=== PATIENT | female | born 1955 | race Caucasian/White ===

== ENCOUNTER 2016-12-03 15:28 | Emergency (ER) | payer OTHER ==
[~2016-12-03] VITALS: Ht 162.6 cm; Wt 108.0 kg
--- NOTE | ~2016-12-03 | EKG ---
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: Desiree BLANCA : 1955 Requested By: Maksim Lopez Order Number: [id number] MD: Porter Bowie Measurements Intervals [place] Rate: 107 P: 38 OR: 171 QRS: 9 QRSD: 77 T: 43 QT: 322 QTc: 430 Interpretive Statements Sinus tachycardia Otherwise no significant abnormality No previous ECG available for comparison Electronically Signed On 12-04-2016 8:34:30 CDT by Porter Bowie [email or web address] <ELECTRONICALLY SIGNED> By: Porter Bowie MD, [facility] 12/04/16 0834 1626 1626 Porter Bowie MD, FACC /EPI
[~2016-12-03 15:28] MED LIST: ACETAMINOPHEN325 M1 PO; ADVAIR 100-501 EACH; ADVAIR 250-501 EACH INH; CEFTIN500 MG PO; COLACE 100 MG100 MG PO; EPIPEN 2-P0.3 MG/0.3 IM; FLUCONAZOLE 10100 MG PO; GLIPIZIDE XL2.5 MG PO; GLUCOPHAGE XR500 MG PO; HYDROCODONE-AP1 EAC6 PO; IBUPROFEN 600600 M1 PO; LEVEMIR SUBQ; LUNESTA3 MG PO; MOBIC15 MG; MULTI VITAMIN1 EACH PO; NORCO 5-325 TA1 EACH PO; NOVOLOG100 UNIT/1; PERCOCET 5-3251 EACH PO; PHENTERMINE H37.5 MG; PREDNISONE 10 M10 M1 PO; PROMETHAZINE12.5 M1 PO; SINGULAIR 10 MG10 M1; SINGULAIR 10 MG10 M1 PO; TRAZODONE 150150 M1; TRAZODONE 150150 M1 PO; Trazodone PO; VITAMIN D1000 UNI1 PO; VITAMINC500 PO; XARELTO10 M1
[2016-12-03 16:45] LABS: PROTIME 10.7 Seconds (9.3-11.4)
[2016-12-03 16:46] LABS: CALCIUM 7.9 mg/dL (8.5-10.1); CREATININE 0.9 mg/dL (0.6-1.0); POTASSIUM 4.1 mmol/L (3.5-5.1)
[2016-12-03 16:51] LABS: ALBUMIN 3.1 g/dL (3.4-5.0); TOTAL BILIRUBIN 0.5 mg/dL (<0.1-1.0); TOTAL PROTEIN 6.8 g/dL (6.4-8.2)
[2016-12-03 17:13] LABS: HEMATOCRIT 42.2 % (37.0-47.0); HEMOGLOBIN 14.3 gm/dL (12.0-15.0); MANUAL DIFF YES; RBC 5.12 mil/uL (4.20-5.00); WBC 5.7 thou/uL (4.0-11.0)
[2016-12-03 17:14] LABS: ABSOLUTE NEUTROPHILS 3.9 thou/uL (1.4-8.2); MCH 27.9 pg (26.0-34.0); MCHC 33.9 % (28.0-37.0); MCV 82.4 fL (80.0-100.0); PLATELET COUNT 203 thou/uL (150-400); RDW 15.8 % (10.5-14.5)
[2016-12-03] MEDS ORDERED: ROBITUSSIN100 MG/53 PO (18:13)
[2016-12-03] MEDS ORDERED: PREDNISONE 20 M20 MG PO (18:14)
[2016-12-03] MEDS ORDERED: ZPAK PO (18:14)
== END 2016-12-03 18:33 | disposition home or self-care (01) ==
LOC: ER 15:28
PROVIDERS: Physician Assistant
DX: J18.8 Other pneumonia, unspecified organism (principal); Z90.710 Acquired absence of both cervix and uterus; J45.909 Unspecified asthma, uncomplicated; Z98.890 Other specified postprocedural states; Z88.1 Allergy status to other antibiotic agents; Z88.2 Allergy status to sulfonamides; Z88.8 Allergy status to other drugs, medicaments and biological substances

== ENCOUNTER 2017-05-04 20:58 | Emergency (ER) | payer OTHER ==
[~2017-05-04] VITALS: Ht 162.6 cm; Wt 104.3 kg
--- NOTE | ~2017-05-04 | EKG ---
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: AHSAN : 1955 Requested By: Juan Wilkins Order Number: [id number] MD: Porter Bowie Measurements Intervals [employer] Rate: 72 P: 33 MD: 184 QRS: 4 QRSD: 94 T: 25 QT: 390 QTc: 427 Interpretive Statements Sinus rhythm Low voltage, precordial leads Left ventricular hypertrophy Baseline wander in lead(s) V5 Compared to ECG 12/03/2016 16:26:11 No significant change was found Electronically Signed On 05-06-2017 13:32:43 CDT by Porter Bowie [email or web address] <ELECTRONICALLY SIGNED> By: Porter Bowie MD, [facility] 05/06/17 1332 12 12 Porter Bowie MD, [facility] /EPI
[~2017-05-04 20:58] MED LIST changes: +PREDNISONE 20 M20 MG PO; +ROBITUSSIN100 MG/53 PO; +VENTOLIN HFA 1818 GM INH; +ZPAK PO
[2017-05-04 22:57] LABS: BASOPHILS 0.7 % (0.0-2.0); EOSINOPHILS 4.2 % (0.0-3.0); HEMATOCRIT 40.5 % (37.0-47.0); HEMOGLOBIN 13.8 gm/dL (12.0-15.0); LYMPHOCYTES 20.7 % (24.0-44.0); MCH 28.2 pg (26.0-34.0); MCHC 33.9 g/dL (28.0-37.0); MCV 83.1 fL (80.0-100.0); PLATELET COUNT 345 thou/uL (150-400); POLYS 66.4 % (36.0-66.0); RBC 4.87 mil/uL (4.20-5.00); RDW 14.8 % (10.5-14.5); WBC 7.6 thou/uL (4.0-11.0)
[2017-05-04 23:04] LABS: ANION GAP 7 mmol/L (7-16); BUN 14 mg/dL (7-18); CHLORIDE 102 mmol/L (98-107); CO2 28 mmol/L (21-32); CREATININE 0.7 mg/dL (0.6-1.0); GLUCOSE 82 mg/dL (74-106); MANUAL DIFF NO; POTASSIUM 4.8 mmol/L (3.5-5.1); SODIUM 137 mmol/L (136-145)
[2017-05-04 23:12] LABS: ALBUMIN 3.6 g/dL (3.4-5.0); ALKALINE PHOSPHATASE 103 U/L (46-116); APTT 23.5 Seconds (24.5-32.8); PROTIME 9.5 Seconds (9.3-11.4); SGOT 33 U/L (15-37); SGPT 31 U/L (30-65); TOTAL BILIRUBIN 0.4 mg/dL (<0.1-1.0); TOTAL PROTEIN 6.7 g/dL (6.4-8.2); TROPONIN-I < 0.04 ng/mL (<0.04-0.07)
== END 2017-05-05 00:33 | disposition home or self-care (01) ==
LOC: ER 20:58
PROVIDERS: Emergency Medicine
DX: J45.901 Unspecified asthma with (acute) exacerbation (principal); D83.9 Common variable immunodeficiency, unspecified; J32.9 Chronic sinusitis, unspecified; Z86.711 Personal history of pulmonary embolism; Z90.710 Acquired absence of both cervix and uterus; Z90.721 Acquired absence of ovaries, unilateral; Z86.018 Personal history of other benign neoplasm; Z88.1 Allergy status to other antibiotic agents; Z88.2 Allergy status to sulfonamides

== ENCOUNTER 2020-09-09 09:20 | Inpatient (IN) | payer OTHER ==
[~2020-09-09] VITALS: Ht 162.6 cm; Wt 144.2 kg
--- NOTE | ~2020-09-09 | EMS ---
[address] [address] EMS Patient Care Report Name: MARLENA GAMINO Room #: [facility] [id number] Admission: 09/09/20 Attend Phys: Discharge: Date of : 53 Report #: [id number] THIS REPORT FOR: //name// Report Transmitted: 09/09/2020 09:33 EMS Care Summary [facility] Incident [id number] @ 09/09/2020 08:30 Incident Location [address] [place] [address]/TO [place] [id number] Patient MARLENA GAMINO Female, 65 Years 1955 Patient Address [address] [place], [place] [id number] Patient History Asthma,Diabetes, Patient Allergies Avelox,Sulfa, Patient Medications Zithromax, Metformin, Atrovent, Glipizide, Ventolin, Cipro, Symbicort, Augmentin, Bentyl, Cephalexin, Dexamethasone, Flagyl, Omeprazole, Chief Complaint Shortness of breath Disposition Transported No Lights/[place] Reason Breathing Problem Transported To [facility] Narrative Dispatched to shortness of breath and pt is COVID positive. Upon arrival pt found sitting upright in bed in minor distress. Pt states she was feeling [address] [address] EMS Patient Care Report Name: MARLENA GAMINO Room #: REG ER Rachel#: [id number] Admission: 09/09/20 Attend Phys: Discharge: Date of : 53 Report #: [id number] slightly short of breath last Sunday and went and got a COVID test and was positive. Pt states last night anytime she got up or exerted herself she became very short of breath and would have long coughing fit. Pt states it would take approx 5 minutes to catch her breath. Pt states when she is coughing she becomes weak but regains strength after. Pt denies chest pain. ALS assessment. youth nutritional monitor, 12-lead, IV, and O2 applied. Pt transported to Ed for further evaluation and treatment by MD. Initial Vitals @09:09P: 84,R: 33,CO: 1,SpO2: 94, @08:55P: 91,R: 22,BP: 101/75,SpO2: 91, @08:59P: 85,R: 30,GCS: 15,SpO2: 93, @08:41P: 88,R: 22,BP: 123/61,GCS: 15,CO: 1,SpO2: 89,Revised Trauma: 12, @08:52P: 86,R: 15,SpO2: 93, @08:52P: 89,R: 36,CO: 0,SpO2: 94, @09:11P: 87,R: 29,BP: 108/64,GCS: 15,SpO2: 95,Revised Trauma: 12, Assessments @08:40MENTAL:Person Oriented,Time Oriented,Place Oriented,Event Oriented,SKIN:HEENT:LUNG SOUNDS:ABDOMEN:PELVIS//GI:EXTREMITIES:Left Arm: No Abnormalities,Right Arm: No Abnormalities,Left Leg: No Abnormalities,Right Leg: No Abnormalities,PULSE:Radial: 2+ Normal,NEURO:@08:54MENTAL:Time Oriented,Person Oriented,Event Oriented,Place Oriented,SKIN:HEENT:LUNG SOUNDS:General: No Abnormalities,Left Upper: No Abnormalities,Right Upper: No Abnormalities,Left Lower: No Abnormalities,Right Lower: No Abnormalities,ABDOMEN:General: No Abnormalities,Left Upper: No Abnormalities,Right Upper: No Abnormalities,Left Lower: No Abnormalities,Right Lower: No Abnormalities,PELVIS//GI:EXTREMITIES:Left Arm: No Abnormalities,Right Arm: No Abnormalities,Left Leg: No Abnormalities,Right Leg: No Abnormalities,PULSE:NEURO: Impression Acute Respiratory Distress (Dyspnea) Procedures @08:40ALS AssessmentResponse: UnchangedSucceeded@08:56Normal Saline (.9% NaCl) 10cc (20 ga) Site: Hand-LeftResponse: UnchangedSucceeded@08:42Oxygen FlowRate: 4 Device: Nasal Cannula (NC) Response: ImprovedSucceeded@08:5912-Lead ECGResponse: UnchangedSucceeded Timeline 08:27,Call Received 08:27,Psap Call 08:30,Dispatched 08:31,En Route 08:37,On Scene [address] [address] EMS Patient Care Report Name: MARLENA GAMINO Room #: REG [facility] Ramos#: [id number] Admission: 09/09/20 Attend Phys: Discharge: Date of : 53 Report #: [id number] 08:39,At Patient 08:40,ALS Assessment,Response: UnchangedSucceeded, 08:41,BP: 123/61 M,PULSE: 88,RR: 22 R,SPO2: 89 Ox,ETCO2: ,BG: ,PAIN: ,GCS: 15, 08:42,Oxygen FlowRate: 4 Device: Nasal Cannula (NC) Response: ImprovedSucceeded, 08:49,Depart Scene 08:52,BP: / M,PULSE: 89,RR: 36 R,SPO2: 94 Ox,ETCO2: ,BG: ,PAIN: ,GCS: , 08:52,BP: / M,PULSE: 86,RR: 15 R,SPO2: 93 Ox,ETCO2: ,BG: ,PAIN: ,GCS: , 08:55,BP: 101/75 M,PULSE: 91,RR: 22 R,SPO2: 91 Ox,ETCO2: ,BG: ,PAIN: ,GCS: , 08:56,Normal Saline (.9% NaCl) 10cc 20 ga Site: Hand-Left,Response: UnchangedSucceeded, 08:59,12-Lead ECG,Response: UnchangedSucceeded, 08:59,BP: / M,PULSE: 85,RR: 30 R,SPO2: 93 Ox,ETCO2: ,BG: ,PAIN: ,GCS: 15, 09:09,BP: / M,PULSE: 84,RR: 33 R,SPO2: 94 Ox,ETCO2: ,BG: ,PAIN: ,GCS: , 09:11,BP: 108/64 M,PULSE: 87,RR: 29 R,SPO2: 95 Ox,ETCO2: ,BG: ,PAIN: ,GCS: 15, 09:15,At Destination 09:45,Call Closed Disclaimer v1.1 Copyright 2020 [employer] This EMS Care Summary contains data elements from the applicable legal record (which may be displayed differently). It is designed to provide pertinent information for the following purposes: continuity of care, clinical quality, and state data reporting. The complete legal record is available to ED staff and administrators of the receiving hospital in [employer] Patient Tracker. All data is provided "as is."
[2020-09-09 09:21] VITALS: BP 151/86
[2020-09-09] MEDS ORDERED: METFORMIN HCL500 M3 PO (09:24)
[2020-09-09] MEDS ORDERED: NASACORT10.8 ML NASAL (09:42)
[2020-09-09] MEDS ORDERED: CO-ENZYME Q-1010 MG PO (09:42)
[2020-09-09] MEDS ORDERED: IPRATROPIUM BRO15 ML NASAL (09:43)
[2020-09-09] MEDS ORDERED: GLIPIZIDE 10 MG10 MG PO (09:44)
[2020-09-09] MEDS ORDERED: FISH OIL 1,0001 EAC9 PO (09:44)
[2020-09-09] MEDS ORDERED: SLEEP AID50 MG PO (09:45)
[2020-09-09] MEDS ORDERED: VITAMIN D3125 MCG/1 PO (09:45)
[2020-09-09] MEDS ORDERED: AZITHROMYCIN500 MG PO (09:46)
[2020-09-09] MEDS ORDERED: METFORMIN HCL500 MG PO (09:46)
[2020-09-09] MEDS ORDERED: FOSAMAX 70 MG T70 MG PO (09:47)
[2020-09-09 09:48] LABS: ABSOLUTE NEUTROPHILS 6.6 thou/uL (1.4-8.2); HEMATOCRIT 40.4 % (37.0-47.0); HEMOGLOBIN 13.3 gm/dL (12.0-15.0); MCH 27.5 pg (26.0-34.0); MCHC 32.9 g/dL (28.0-37.0); MCV 83.7 fL (80.0-100.0); MONOCYTES 3.2 % (1.0-8.0); PLATELET COUNT 315 thou/uL (150-400); POLYS 90.8 % (36.0-66.0); RBC 4.83 mil/uL (4.20-5.00); RDW 15.1 % (10.5-14.5); WBC 7.3 thou/uL (4.0-11.0)
[2020-09-09] MEDS ORDERED: PEPCID20 MG PO (09:48)
[2020-09-09] MEDS ORDERED: BREO ELLIPTA 11 EACH INH (09:48)
[2020-09-09 10:10] LABS: ANION GAP 15 mmol/L (7-16); BUN 23 mg/dL (7-18); CALCIUM 8.4 mg/dL (8.5-10.1); CHLORIDE 101 mmol/L (98-107); CO2 21 mmol/L (21-32); GLUCOSE 452 mg/dL (74-106); POTASSIUM 4.3 mmol/L (3.5-5.1); SODIUM 137 mmol/L (136-145)
[2020-09-09 10:22] LABS: ALBUMIN 2.8 g/dL (3.4-5.0); SGOT 24 U/L (15-37); SGPT 27 U/L (30-65); TOTAL BILIRUBIN 0.5 mg/dL (0.2-1.0); TOTAL PROTEIN 6.4 g/dL (6.4-8.2); TROPONIN-I <0.06 ng/mL (<0.06)
--- NOTE | 2020-09-09 10:41 | EKG ---
[place] [address] [place] [address] ELECTROCARDIOGRAM REPORT Name: MARLENA GAMINO [facility] [id number] Admission: 09/09/20 Attend Phys: Discharge: Date of : 53 Report #: [id number] [facility] ED Test Date: 2020-09-09 Test Time: 09:33:34 Pat Name: MARLENA GAMINO Department: Room: Gender: F Customer Success Intern: esnafisa : 1955 Requested By: Thaddeus Dsouza Order Number: [id number] MD: Harish Rosario Measurements Intervals [place] Rate: 82 P: 5 [place]: 165 QRS: 3 QRSD: 92 T: 4 QT: 403 QTc: 471 Interpretive Statements Sinus rhythm Low voltage, precordial leads Left ventricular hypertrophy Borderline T abnormalities, anterior leads Baseline wander in lead(s) V6 Compared to ECG 05/04/2017 21:13:28 T-wave abnormality now present Electronically Signed On 09-09-2020 10:41:10 SUSTAINABILITY EXECUTIVE DIRECTOR by Harish Rosario [email or web address] <ELECTRONICALLY SIGNED> By: Harish Rosario MD, [facility] 09/09/20 1041 2 2 Harish Rosario MD, [facility] /EPI
[2020-09-09 11:09] VITALS: BP 151/86
[2020-09-09 11:43] VITALS: BP 134/61
[2020-09-09 12:45] VITALS: BP 150/70
[2020-09-09 15:37] VITALS: BP 146/85
--- NOTE | 2020-09-09 16:40 | NUR ---
A RIGHT UPPER ARM MIDLINE WAS PLACED PER HOSPITAL POLICY FOR ADDITIONAL IV ACCESS. LINE WAS TRIMMED TO 19CM AND ADVANCED WITHOUT DIFFICULTY. LINE SECURED AND RELEASED FOR USE
[2020-09-09 20:12] VITALS: BP 120/57
[2020-09-10 01:14] VITALS: BP 119/63; BP 120/53; BP 131/51
[2020-09-10 02:06] LABS: GLYCOHEMOGLOBIN (HGB A1C) 7.7 % (4.8-5.6)
[2020-09-10 04:57] VITALS: BP 112/46
--- NOTE | 2020-09-10 06:23 | NUR ---
assumed pt care at the change of shift, pt is awake, alert and oriented, sr on the monitor, vss, meds given as per oct, convalescent plasma given, vss, pumped up to 10L NC, 02sat in the low 90s, will passn report
[2020-09-10 07:49] LABS: HEMATOCRIT 40.6 % (37.0-47.0); HEMOGLOBIN 12.9 gm/dL (12.0-15.0); MCH 27.1 pg (26.0-34.0); MCHC 31.8 g/dL (28.0-37.0); MCV 85.4 fL (80.0-100.0); RBC 4.75 mil/uL (4.20-5.00); RDW 15.4 % (10.5-14.5)
[2020-09-10 08:00] VITALS: BP 139/61
[2020-09-10 08:09] LABS: ALBUMIN 2.7 g/dL (3.4-5.0); CALCIUM 8.4 mg/dL (8.5-10.1); CREATININE 0.9 mg/dL (0.6-1.0); DIRECT BILIRUBIN 0.1 mg/dL (<0.1-0.2); MAGNESIUM 2.6 mg/dL (1.8-2.4); POTASSIUM 3.9 mmol/L (3.5-5.1); TOTAL BILIRUBIN 0.4 mg/dL (0.2-1.0); TOTAL PROTEIN 6.2 g/dL (6.4-8.2)
--- NOTE | 2020-09-10 11:23 | NUR ---
PT SEEN TODAY BY , WHEN RN WENT INTO THE ROOM, PT WAS WIDE EYED, APPEARED UNEASY, ASKED PT WHAT WAS GOING ON, PT STATED THAT SHE HAD NOT SLEPT ALL NIGHT AND WAS STARTING TO FEEL FUNNY. RN COMMUNICATED WITH THE PT'S DAUGHTER WHO IS AN LIFE UNDERWRITER THAT USED TO WORK AT THIS HOSPITAL, PER THE DAUGHTER PT HAS TAKEN 300MG OF TRAOZODONE FOR THE PAST 25 YEARS AND NOT GETTING ENOUGH SLEEP WOULD HAVE MORE THAN ENOUGH CAUSED THE ANXIETY FOR THE PT. WHEN TRYING TO GET THE PT UP TO THE BEDSIDE COMMODE, PT EXCLAIMED I CAN'T DO IT SEVERAL TIMES BEFORE EVEN SETTING THE FOOT ON THE GROUND. PT WAS ABLE TO BE CONSOLED THROUGH THERAPEUTIC COMMUNICATION, WAS ABLE TO GO USE THE BSC AND URINATED DARK YELLOW URINE. PT'S APPETITE IS LOW, AND HAS BEEN NEEDING INCREASING OXYGENATION NEEDS. PT CAME TO SEE THE PT RN SPOKE ABOUT THIS MORNING'S MOBILITY INCIDENCE AND REPORTED TO TAKE PRECAUTIONS R/T ANXIETY. PT STATED UNDERSTANDING. CONTINUING TO MONITOR
[2020-09-10 11:30] VITALS: BP 147/82
--- NOTE | 2020-09-10 13:46 | NUR ---
Spoke with patient via phone. Patient admits with COVID pnemonia. Patient in Enhanced isolation for COVID. Patient with hx of asthma. She has CPAP and nebulizer at home. Independent with adls and self care. 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 She does not need documentation to return to work. 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 She lives with spouse and son. [facility]. She has 2 dtrs one lives out of town. She is rec Inermectin and Remdessivir as part of her treatment plan. She does not have oxygen at home. She currently on 10 liters. Therapy evals in process. Reviewed role of casemgt. Her PCP is Dr Earl. Joyce for dc planning.
--- NOTE | 2020-09-10 15:15 | HC ---
[facility] [place] [address] CONSULTATION Name: MARLENA GAMINO Room #: 364-P ADM IN M.R.#: [id number] Admission: 09/09/20 Attend Phys: Ray Monet MD Discharge: Date of : 53 Report #: [id number] THIS REPORT FOR: cc: Bela Wetzel MD [facility] - Family physician unknown Juan Olivera MD ~ DATE OF SERVICE: 09/09/2020 INFECTIOUS DISEASE CONSULTATION REASON FOR CONSULTATION: I was asked to evaluate concerning COVID-19 pneumonia. HISTORY OF PRESENT ILLNESS: The patient is a 65-year-old underlying history of common variable immunodeficiency, diabetes and asthma. On 09/04/2020, she was diagnosed with COVID-19 after she presented with low-grade fever, nonproductive cough, shortness of breath, myalgias, arthralgias and weakness. Over the subsequent 4 days, she began to get acutely short of breath; therefore brought in to the Emergency Room where she was noted to have an O2 saturation of 87% on room air. She typically uses an inhaler for her asthma. She has previously been on immunoglobulin injections up to the last 10 years and then discontinued because she continued to have sinus infections. With this illness, she has had nasal congestion and some diarrhea. REVIEW OF SYSTEMS: A 14-point review of system was negative other than what has been described above. She does take azithromycin every other day as a preventative for her chronic upper respiratory tract infections. Her exposure was to her son who also had COVID-19 at the same time. ALLERGIES: DOXYCYCLINE, SULFA, MOXIFLOXACIN AND CLARITHROMYCIN. MEDICATIONS: As noted on her MAR, which were reviewed. PAST MEDICAL HISTORY: Asthma, diabetes, obesity, common variable immunodeficiency, cataract replacement, pulmonary embolus, chronic sinusitis and bronchitis, several sinus surgeries, asthma, hysterectomy, left hand cyst excised. FAMILY HISTORY: No report of tuberculosis. SOCIAL HISTORY: Nonsmoker, no significant alcohol intake. PHYSICAL EXAMINATION: VITAL SIGNS: She was afebrile and hemodynamically stable. GENERAL: She is alert and cooperative and pleasant, on oxygen per nasal cannula. [facility] [address] [place] [address] CONSULTATION Name: MARLENA GAMINO Room #: 364-P ADM IN M.R.#: [id number] Admission: 09/09/20 Attend Phys: Ray Monet MD Discharge: Date of : 53 Report #: [id number] SKIN: Without rash or decubitus. No palpable adenopathy. Moderately obese. EYES: Without scleral icterus. MOUTH: Without mucositis. NECK: Supple. LUNGS: Coarse breath sounds in the posterior chest without consolidation. HEART: Regular, without murmur, gallop or rub. ABDOMEN: Soft and nontender with no hepatosplenomegaly or mass. GENITAL AND RECTAL: Not performed. BACK: Spine was nontender. No CVA tenderness. EXTREMITIES: With no clubbing, cyanosis or edema. NEUROLOGIC: Cranial nerves intact and strength in upper and lower extremities was symmetric and within normal limits. Mood without anxiety or depression. LABORATORY STUDIES: Reviewed. MICROBIOLOGY: Reviewed. IMAGING: Chest x-ray and CT scan of the chest reviewed. ASSESSMENT: 1. A 65-year-old with COVID-19 pneumonia and showers. 2. Underlying asthma. 3. Common variable immunodeficiency. 4. Diabetes. RECOMMENDATIONS: We will continue with combination antiviral therapy, antibiotics, pending culture results. Maintained on COVID isolation unit for cardiopulmonary monitoring. We will check quantitative immunoglobulins. In her situation, convalescent plasma was offered and highly suggested due to her immunodeficiency. We will continue monitoring for further exacerbation of her asthma. The patient is at risk for further complications due to her other comorbidities. <ELECTRONICALLY SIGNED> By: Juan Olivera MD 09/10/20 1515 0045 0059 Juan Olivera MD /nt
[2020-09-10 15:56] VITALS: BP 151/72
[2020-09-10 20:38] VITALS: BP 147/88
--- NOTE | 2020-09-10 21:44 | NUR ---
PT ALERT AND ORIENTED X4 VSS . SAT 93% ON 10 LNC. BS DIMINISHED BILATERALLY. ASSISTED TO BSC. VOIDS CLEAR YELLOW URINE. BED DOWN. CALL LIGHT IN REACH. BED ALARM ON RT TX GIVEN PER RT.
[2020-09-11] VITALS (30 sets, daily range): BP systolic 86–175; BP diastolic 46–84
--- NOTE | 2020-09-11 06:19 | NUR ---
PT STILL ON 15L NC WHICH WAS INCREASED LAST NIGHT PER RT DUE TO SAT 86% ON 10LNC. SAT 93% ON 15LNC. SOA WITH TRANSFERRING TO BSC. VOIDS CLEAY YELLOW URINE. 500 OUT. NO C/O PAIN. VSS LOW GRADE TEMP NOTED.
[2020-09-11 10:43] LABS: BE(vivo) -2.5 mmol/L (-2 to +3); HCO3 20.2 mmol/L (22.0-26.0); PCO2 29.4 mmHg (35.0-45.0); PO2 71.3 mmHg (80.0-100.0); pH 7.455 (7.360-7.450); sO2 95.3 % (92.0-98.0)
--- NOTE | 2020-09-11 12:57 | NUR ---
VASCULAR ACCESS NOTIFIED TO DRAW LABS, PATIENT HAS A MIDLINE WITH POSITIONAL BLOOD RETURN. DR. ELKINS AT BEDSIDE AND REQUESTING A CENTRAL LINE PLACEMENT DUE TO PATIENT STATUS. DISCUSSED THIS WITH THE PATIENT AND SHE VERBALIZED UNDERSTANDING. A #6F TRIPLE LUMEN CENTRAL LINE WAS PLACED AFTER A BEDSIDE TIMEOUT WAS COMPLETED. THE 25CM LINE WAS ADVANCED WITHOUT DIFFICULTY. XRAY SHOWING LINE WAS LOOPED BACK. THE LINE WAS WITHDRAWN 2MC AND POWER FLUSHED VIA EACH PORT. 2ND XRAY SHOWING LINE IN MID TO DISTAL SVC IN ADEQUATE POSITION. 3W NURSE NOTIFIED THE LINE WAS RELEASED FOR USE
[2020-09-11 13:06] LABS: HEMOGLOBIN 12.4 gm/dL (12.0-15.0); MCH 27.5 pg (26.0-34.0); MCHC 32.7 g/dL (28.0-37.0); MCV 84.1 fL (80.0-100.0); RBC 4.52 mil/uL (4.20-5.00); WBC 6.5 thou/uL (4.0-11.0)
[2020-09-11 13:27] LABS: ALBUMIN 2.3 g/dL (3.4-5.0); CALCIUM 7.4 mg/dL (8.5-10.1); CREATININE 0.7 mg/dL (0.6-1.0); DIRECT BILIRUBIN 0.1 mg/dL (<0.1-0.2); MAGNESIUM 2.3 mg/dL (1.8-2.4); PHOSPHORUS 2.4 mg/dL (2.6-4.7); POTASSIUM 3.9 mmol/L (3.5-5.1); TOTAL BILIRUBIN 0.4 mg/dL (0.2-1.0); TOTAL PROTEIN 5.6 g/dL (6.4-8.2)
--- NOTE | 2020-09-11 15:07 | NUR ---
CARE ASSUMED AT 0700, ALERT AND ORIENTED X4, DENIES NAUSEA AND VOMITTING. PT WAS ON 15L OF OXYGEN, DISTRESS WITH EXERTION. PT WAS PUT ON 60L OPTIFLOW, PT CONTINUE TO BE IN DISTRESS, TACHYPNEIC. 1440 DR. LAMAR MIKE, STATED HE WANTED PT TRANSFERRED TO ICU AND PLACED ON A BIPAP. LATER ON CALLED AND STATED PT OKAY TO BE ON 3W, AND BE ON A BIPAP. JUANITO CALLED AND UPDATED ABOUT CARE.
--- NOTE | 2020-09-11 16:34 | NUR ---
1540 DR. NEWTON GAVE ORDERS TO TRANSFER PT DOWN TO ICU AND [place] FOR INTUBATION. REPORT GIVEN TO MIKE WALLACE. CALLED PT DAUGHTER CALLED AND UPDATED ABOUT PT CARE. DAUGHTER REQUESTED TO TALK TO HER MOM ON THE PHONE. CALLED PT DAUGHTER BACK IN PT ROOM, PT WAS ABLE TO SPEAK TO HER DAUGHTER. 1630 PT TRANSFERRED TO ICU, ROOM 239
[2020-09-11 17:17] LABS: BE(vivo) -3.4 mmol/L (-2 to +3); HCO3 21.3 mmol/L (22.0-26.0); PCO2 37.5 mmHg (35.0-45.0); PO2 70.7 mmHg (80.0-100.0); pH 7.372 (7.360-7.450); sO2 93.9 % (92.0-98.0)
--- NOTE | 2020-09-11 19:42 | NUR ---
PATIENT TRANSFERRED TO ICU FROM . INTUBATED BY DR NEWTON UPON ARRIVAL. DR. NEWTON SPOKE WITH ABOUT INTUBATION AND PREVIOUS RN MIK SPOKE WITH DAUGHTER AND UPDATED HER ABOUT INTUBATION. PATIENT PLACED ON PROPOFOL, VERSED, AND FENTANYL GTTS POST INTUBATED FOR VENT MANAGEMENT. LEVOPHED FOR LIABLE BLOOD PRESSURES. STABLIZED AFTER SEDATION UNDER CONTROL. MORIN PLACE FOR ACCURATE I/O'S. OG TUBE PLACED. PATIENT IN BILATERAL WRIST RESTRAINTS.
--- NOTE | 2020-09-11 19:49 | NUR ---
SPOKE TO AND GAVE UPDATE. EDUCATED REGARDING VENTILATOR, HOW SETTINGS ARE WORKING FOR THIS PT AND WHY SEDATION IS NECESSARY. DISCUSSED VS. EXPRESSES CONFUSION REGARDING VENTILATOR, DID ATTEMPT TO ANSWER QUESTIONS IN UNDERSTANDABLE TERMS TO BEST OF THIS RNS ABILITY.
--- NOTE | 2020-09-11 21:16 | NUR ---
SPOKE WITH DAUGHTER WHO IS AN WET WASHER MACHINE. DISCUSSED STATUS AND CURRENT POC FOR SHIFT. IS ON FACETIME WITH PATIENT AT THIS MOMENT, GAVE BRIEF OVERVIEW OF LINES AND AIRWAY TO ALLEVIATE ANXIETY AND HELP UNDERSTAND WHAT HE WAS LOOKING AT. PT VSS, TOLERATING VENT WELL
[2020-09-12] VITALS (27 sets, daily range): BP systolic 86–127; BP diastolic 48–67
[2020-09-12 05:47] LABS: D-DIMER 0.44 ug/mLFEU (0.19-0.50); FIBRINOGEN 414.7 mg/dL (210-360); INR 1.1; PROTIME 10.8 Seconds (9.3-11.4)
[2020-09-12 05:55] LABS: ABSOLUTE NEUTROPHILS 3.8 thou/uL (1.4-8.2); BASOPHILS 0.2 % (0.0-2.0); HEMATOCRIT 34.9 % (37.0-47.0); HEMOGLOBIN 11.4 gm/dL (12.0-15.0); LYMPHOCYTES 6.6 % (24.0-44.0); MCH 27.7 pg (26.0-34.0); MCHC 32.6 g/dL (28.0-37.0); MCV 84.9 fL (80.0-100.0); MONOCYTES 3.3 % (1.0-8.0); PLATELET COUNT 301 thou/uL (150-400); POLYS 89.9 % (36.0-66.0); RBC 4.11 mil/uL (4.20-5.00); RDW 15.2 % (10.5-14.5); WBC 4.2 thou/uL (4.0-11.0)
[2020-09-12 05:59] LABS: ALBUMIN 1.9 g/dL (3.4-5.0); CALCIUM 6.9 mg/dL (8.5-10.1); CREATININE 0.7 mg/dL (0.6-1.0); DIRECT BILIRUBIN 0.1 mg/dL (<0.1-0.2); PHOSPHORUS 3.1 mg/dL (2.5-4.9); POTASSIUM 3.9 mmol/L (3.5-5.1); TOTAL BILIRUBIN 0.3 mg/dL (0.2-1.0); TOTAL PROTEIN 4.9 g/dL (6.4-8.2)
--- NOTE | 2020-09-12 05:59 | NUR ---
PT TOLERATING VENT, ABLE TO TITRATE SEDATION SIGNIFICANTLY. VSS, OFF LEVO BY 2200,
--- NOTE | 2020-09-12 11:49 | NUR ---
PATIENT REMAINS STABLE ON VENT. VSS. PROPOFOL, VERSED, AND FENTANYL GTTS. UPDATED THIS AM AND REQUESED THAT DR. ELKINS PROVIDES UPDATE TO . SPOKE WITH DAUGHTER JUANITO WELL AND GAVE STATUS UPDATE.
--- NOTE | 2020-09-12 19:13 | NUR ---
PATIENT REMAINS STABLE ON VENT. VENT CHANGES BY RT ORDERED BY DR. NEWTON. SPOKE WITH DAUGHTER AGAIN THIS EVENING AND GAVE UPDATE.
[2020-09-13] VITALS (56 sets, daily range): BP systolic 107–159; BP diastolic 52–75
[2020-09-13 05:46] LABS: HEMATOCRIT 35.2 % (37.0-47.0); HEMOGLOBIN 11.5 gm/dL (12.0-15.0); MCH 27.3 pg (26.0-34.0); MCHC 32.8 g/dL (28.0-37.0); MCV 83.4 fL (80.0-100.0); RBC 4.22 mil/uL (4.20-5.00); RDW 15.1 % (10.5-14.5); WBC 4.8 thou/uL (4.0-11.0)
[2020-09-13 06:06] LABS: ALBUMIN 1.8 g/dL (3.4-5.0); CALCIUM 6.6 mg/dL (8.5-10.1); CREATININE 0.6 mg/dL (0.6-1.0); DIRECT BILIRUBIN 0.2 mg/dL (<0.1-0.2); MAGNESIUM 2.3 mg/dL (1.8-2.4); PHOSPHORUS 2.5 mg/dL (2.5-4.9); TOTAL BILIRUBIN 0.3 mg/dL (0.2-1.0); TOTAL PROTEIN 4.9 g/dL (6.4-8.2)
--- NOTE | 2020-09-13 07:01 | NUR ---
PATIENT TRANSFER TO ICU, INTUBATED AND REMAINS SEDATED AND ON VENT. PATIENT PLACED ON HOLD. WILL NEED NEW ORDERS WHEN APPROPRIATE FOR THERAPY.
--- NOTE | 2020-09-13 07:14 | NUR ---
ASSUMED CARE AT 1900. AFEBRILE OVERNIGHT. MAINTAINED VENT SETTINGS AC 20 450 12 70%. MINIMAL SECETIONS TO SUCTION. STRONG COUGH/GAG REFLEX, OPENED EYES SLIGHTLY, AND MOVED LEFT HAND DURING BATH. BP STABLE OFF PRESSERS OVERNIGHT. 705- MICHAEL CALLED, GAVE HIM AN UPDATED ON HOW THE NIGHT WENT, HE STATED HE WAS EXPECTING A CALL THIS MORNING FROM A DOCTOR WITH AN UPDATE. EDUCATED THAT THE DOCTOR WOULD CALL AFTER ROUNDS.
--- NOTE | 2020-09-13 08:14 | NUR ---
Pt TRANSFERRED TO ICU ON 09/11/20 D/T NEED FOR HIGHER LEVEL OF CARE. Pt INTUBATED, SEDATED, AND ON PRESSORS. WILL NEED NEW PT CONSULT TO RESUME PT INTERVENTIONS ONCE Pt MEDICALLY STABLE.
--- NOTE | 2020-09-13 10:06 | NUR ---
Recommend start tube feed of vital HP at 30ml/hr and progress to goal of 45ml/hr. Defer any fluid needs to physician
--- NOTE | 2020-09-13 10:50 | NUR ---
POC UPDATE: PT IS RECEIVING TX FOR COVID, W/ABX AND STEROIDS. PT WAS INTUBATED. THE PLAN IS TO CONT ON ICU ISOLATION UNIT.
[2020-09-14] VITALS (57 sets, daily range): BP systolic 91–149; BP diastolic 48–81
[2020-09-14 05:42] LABS: HEMOGLOBIN 11.3 gm/dL (12.0-15.0); MCH 27.4 pg (26.0-34.0); MCHC 32.3 g/dL (28.0-37.0); MCV 84.9 fL (80.0-100.0); RBC 4.12 mil/uL (4.20-5.00); RDW 15.5 % (10.5-14.5); WBC 5.2 thou/uL (4.0-11.0)
[2020-09-14 06:13] LABS: CALCIUM 6.5 mg/dL (8.5-10.1); CREATININE 0.6 mg/dL (0.6-1.0); POTASSIUM 3.9 mmol/L (3.5-5.1)
--- NOTE | 2020-09-14 06:34 | NUR ---
PRONED AT 0100 WITHOUT COMPLICATIONS, SEDATION TITRATED FOR COMFORT AND VS TO KEEP PT APPROPRIATELY SEDATED WHILE PRONED. BP STABLE, SATS 99% AT THIS TIME.
[2020-09-14 10:10] LABS: BE(vivo) -3.9 mmol/L (-2 to +3); HCO3 22.6 mmol/L (22.0-26.0); PCO2 47.1 mmHg (35.0-45.0); PO2 57.6 mmHg (80.0-100.0); sO2 86.9 % (92.0-98.0)
[2020-09-14 10:11] LABS: pH 7.299 (7.360-7.450)
[2020-09-14 12:08] LABS: BE(vivo) -3.3 mmol/L (-2 to +3); HCO3 21.8 mmol/L (22.0-26.0); PCO2 39.6 mmHg (35.0-45.0); PO2 109.8 mmHg (80.0-100.0); pH 7.359 (7.360-7.450); sO2 97.9 % (92.0-98.0)
--- NOTE | 2020-09-14 13:52 | NUR ---
0700-ASSUMED CARE OF PT.--VW 0800- MICHAEL CALLED IN,UPDATED ON POC.--VW
[2020-09-15] VITALS (32 sets, daily range): BP systolic 106–151; BP diastolic 51–73
[2020-09-15 00:39] LABS: BE(vivo) -3.7 mmol/L (-2 to +3); HCO3 22.5 mmol/L (22.0-26.0); PCO2 44.9 mmHg (35.0-45.0); sO2 84.3 % (92.0-98.0)
[2020-09-15 00:40] LABS: PO2 52.6 mmHg (80.0-100.0); pH 7.317 (7.360-7.450)
--- NOTE | 2020-09-15 01:40 | NUR ---
2129, MICHAEL FORREST WITH PT. PT PRONED AT 0100, TOLERATED WELL, SETTINGS CHANGED PER DR. JANE AFTER ABG, PT SATS IMPROVED.
--- NOTE | 2020-09-15 05:56 | NUR ---
TOLERATING VENT, PRONATION WELL. VSS, HR REGULATED DOWN TO SR 60'S. FACE ADJUSTED PERIODICALLY FOR COMFORT AND SWELLING.
[2020-09-15 09:22] LABS: ALBUMIN 1.7 g/dL (3.4-5.0); CALCIUM 6.2 mg/dL (8.5-10.1); CREATININE 0.6 mg/dL (0.6-1.0); DIRECT BILIRUBIN 0.1 mg/dL (<0.1-0.2); PHOSPHORUS 2.5 mg/dL (2.5-4.9); POTASSIUM 4.1 mmol/L (3.5-5.1); TOTAL BILIRUBIN 0.3 mg/dL (0.2-1.0); TOTAL PROTEIN 4.4 g/dL (6.4-8.2)
--- NOTE | 2020-09-15 10:49 | NUR ---
ASSUMED CARE OF PT AT 0700. LUCINDA AT BEDSIDE AT 0830, NO NEW ORDERS GIVEN SPOKE TO PT AT 1040. HE WANTED TO KNOW WHEN WE WILL BE WORKING ON GETTING HER OF THE VENT. I TOLD HIM WHILE SHE IS SEDATED AND PRONING THAT WE ARE NOT LOOKING AT LOWERING HER SEDATION YET. WHEN SHE'S DONE PRONING WE WILL WORK ON LOWERING SEDATION AND SEE HOW SHE DOESN VEANING FROM THE VENT.
--- NOTE | 2020-09-15 12:34 | NUR ---
If pt demonstrates tolerance to 3 bolus feeds per day, increase to final goal of 4 cans per day. If no further proning, then change and run continuous at 45ml/hr
--- NOTE | 2020-09-15 21:03 | NUR ---
MICHAEL FACETIMED WITH PT FOR APPROXIMATELY 10 MINUTES. GAVE UPDATE TO . SPOKE ON PHONE WITH DGT JUANITO FOR APPROXIMATELY 10 MINUTES REGARDING PT STATUS GAVE UPDATE ON VS AND VENT SETTINGS DGT IS RIBBER AND CAN UNDERSTAND TERMS.
[2020-09-16] VITALS (34 sets, daily range): BP systolic 116–174; BP diastolic 52–92
[2020-09-16 05:20] LABS: ALBUMIN 2.1 g/dL (3.4-5.0); CALCIUM 7.1 mg/dL (8.5-10.1); CREATININE 0.7 mg/dL (0.6-1.0); DIRECT BILIRUBIN 0.1 mg/dL (<0.1-0.2); PHOSPHORUS 2.7 mg/dL (2.5-4.9); POTASSIUM 4.1 mmol/L (3.5-5.1); TOTAL BILIRUBIN 0.3 mg/dL (0.2-1.0); TOTAL PROTEIN 5.3 g/dL (6.4-8.2)
--- NOTE | 2020-09-16 15:15 | NUR ---
S/W MICHAEL BY PHONE TO PROVIDE EMOTIONAL SUPPORT AND TO GIVE A CONDITION UPDATE. HE IS ASKING ABOUT VISITING ON SUNDAY WHICH HE SAYS WILL BE 21 DAYS OUT OF PT'S SYMPTOMS FOR COVID. ENCOURAGED HIM TO TALK WITH THE NURSE ABOUT THIS. HE WILL CALL RN LATER TODAY TO GET ANOTHER CONDITION UPDATE & CHECK ON POSSIBILITY OF VISITING.
--- NOTE | 2020-09-16 21:18 | NUR ---
This RN spoke to Asaf Dow, patient contact, at 2100 for about 15 minutes to fully update and answer all questions. Plans for to facetime patient this evening.
[2020-09-17] VITALS (30 sets, daily range): BP systolic 124–170; BP diastolic 53–80
[2020-09-17 03:44] LABS: HCO3 24.4 mmol/L (22.0-26.0); PCO2 43.6 mmHg (35.0-45.0); PO2 67.7 mmHg (80.0-100.0); pH 7.366 (7.360-7.450); sO2 92.9 % (92.0-98.0)
[2020-09-17 05:26] LABS: HEMATOCRIT 36.6 % (37.0-47.0); HEMOGLOBIN 11.9 gm/dL (12.0-15.0); MCH 27.5 pg (26.0-34.0); MCHC 32.4 g/dL (28.0-37.0); MCV 84.6 fL (80.0-100.0); PLATELET COUNT 305 thou/uL (150-400); RBC 4.33 mil/uL (4.20-5.00); RDW 15.2 % (10.5-14.5); WBC 4.6 thou/uL (4.0-11.0)
[2020-09-17 05:31] LABS: ALBUMIN 1.8 g/dL (3.4-5.0); CALCIUM 7.6 mg/dL (8.5-10.1); CREATININE 0.6 mg/dL (0.6-1.0); DIRECT BILIRUBIN < 0.1 mg/dL (<0.1-0.2); PHOSPHORUS 2.6 mg/dL (2.6-4.7); POTASSIUM 4.4 mmol/L (3.5-5.1); TOTAL BILIRUBIN 0.1 mg/dL (0.2-1.0); TOTAL PROTEIN 4.6 g/dL (6.4-8.2)
--- NOTE | 2020-09-17 06:08 | NUR ---
Pt still requiring heavy mechanical assistance. Tolerating proning well. Not progressing towards plan of care goals.
--- NOTE | 2020-09-17 12:30 | NUR ---
Asaf Yadav, pt's spouse called to inquire regarding pt status. updated on fi02 remaining at 50% on vent, iv medications continuing for sedation, pain medication for potential discomfort and medication for amnesia effect infusing while the breathing tube is in place. sedated to tolerate vent and associated proning.
--- NOTE | 2020-09-17 22:13 | NUR ---
This RN spoke to Luis Enrique, spouse at 2130 for about 10 minutes discussing patient care. Also plan to facetime with patient once iPad becomes available.
--- NOTE | 2020-09-17 22:14 | NUR ---
This RN spoke to Carmen, daughter at 2200 for 20 minutes discussing plan of care, medications and labs. Daughter is an TELETYPE TELEGRAPHER. Very appreciative, will continue to monitor.
--- NOTE | 2020-09-17 22:39 | NUR ---
Sedation vacation done for about an hour. Patient opened eyes spontaneuosly and withdrawals from pain. Was unable to keep patient off sedation long, HR increased, BP increased and Vt alarming on ventilator. Patient desatted to mid 80's for a period of time. Sedation was turned back on and patient recovered. Not progressing towards goals.
--- NOTE | 2020-09-17 22:49 | NUR ---
RN setup facetime with hospital iPAD for ,Asaf and patient at 1030. Spoke for about 10 minutes.
[2020-09-18] VITALS (31 sets, daily range): BP systolic 93–176; BP diastolic 42–76
--- NOTE | 2020-09-18 01:25 | NUR ---
Patient proned at 0100. Tolerating well. Will continue to monitor.
[2020-09-18 04:48] LABS: ALBUMIN 1.8 g/dL (3.4-5.0); ANION GAP 8 mmol/L (7-16); BUN 28 mg/dL (7-18); CALCIUM 7.3 mg/dL (8.5-10.1); CHLORIDE 103 mmol/L (98-107); CO2 28 mmol/L (21-32); CREATININE 0.6 mg/dL (0.6-1.0); DIRECT BILIRUBIN < 0.1 mg/dL (<0.1-0.2); GLUCOSE 218 mg/dL (74-106); PHOSPHORUS 2.4 mg/dL (2.6-4.7); POTASSIUM 4.1 mmol/L (3.5-5.1); SGOT 24 U/L (15-37); SGPT 19 U/L (14-59); SODIUM 139 mmol/L (136-145); TOTAL BILIRUBIN 0.3 mg/dL (0.2-1.0); TOTAL PROTEIN 4.7 g/dL (6.4-8.2)
--- NOTE | 2020-09-18 06:11 | NUR ---
Patient proned at 0100. Increased O2 needs during night. Urine in [place] notably darker in color, and increased sediment. Informed Dr. Wallis, UA sample to collect. Tolerating TF well. Overall not progressin towards goals.
[2020-09-18 12:11] LABS: URINE BILIRUBIN NEGATIVE (Negative); URINE BLOOD 1+ (Negative); URINE CLARITY CLEAR; URINE COLOR YELLOW; URINE GLUCOSE-RANDOM* NEGATIVE (Negative); URINE KETONES NEGATIVE (Negative); URINE LEUKOCYTES-REFLEX NEGATIVE (Negative); URINE NITRITE-REFLEX NEGATIVE (Negative); URINE PROTEIN (DIPSTICK) NEGATIVE (Negative); URINE SPECIFIC GRAVITY <= 1.005 (1.005-1.035); URINE UROBILINOGEN 0.2 E.U./dl (0.2-1.0)
[2020-09-18 12:22] LABS: CASTS None Seen /LPF (None Seen); SQUAMOUS 0-3 Few /LPF (0-3)
[2020-09-18 12:23] LABS: BACTERIA-REFLEX None Seen /HPF (None Seen); CRYSTALS None Seen /LPF (None Seen); URINE RBC 0-2 Rare /HPF (0-2); URINE WBC-REFLEX 0-5 Rare /HPF (0-5); WBC CLUMPS Occasional (None Seen); YEAST-REFLEX Present (None Seen)
--- NOTE | 2020-09-18 18:44 | NUR ---
spouse called to inquire regarding pt status. updated with her status basically unchanged from previous day. portable chest x ray slightly worse. otherwise continues to remain asleep on vent with continous meds for sedation, pain and amnesic. pt laying on her abdomen to assist her breathing status related to the covid. answered questions to satisfaction.
[2020-09-19] VITALS (25 sets, daily range): BP systolic 136–174; BP diastolic 47–83
--- NOTE | 2020-09-19 03:31 | NUR ---
ASSUMED CARE OF PATIENT AT 1900. VSS. PRONE AT 0100. TOLERATED VERY WELL. O2 SATS IMPROVE, HEART RATE NORMAL LIMITS. ABLE TO FACETIME WITH HER FROM [id number] AND THEN FROM 0728-8897. UPDATED ON PATIENT CONDIION. NO OTHER CONCERNS AT THIS TIME. WORKIN TOWARDS POC GOALS.
[2020-09-19 06:24] LABS: ALBUMIN 1.5 g/dL (3.4-5.0); CALCIUM 7.6 mg/dL (8.5-10.1); CREATININE 0.5 mg/dL (0.6-1.0); DIRECT BILIRUBIN 0.1 mg/dL (<0.1-0.2); PHOSPHORUS 3.4 mg/dL (2.6-4.7); POTASSIUM 4.2 mmol/L (3.5-5.1); TOTAL BILIRUBIN 0.4 mg/dL (0.2-1.0); TOTAL PROTEIN 4.5 g/dL (6.4-8.2)
--- NOTE | 2020-09-19 13:52 | NUR ---
call returned to Asaf Yadav, spouse. updated on pt's status, on vent with sedation- (prop, fent, versed) for her to be able to tolerate ventilator, continuing therapy of turning pt on her abd to improve her covid lung status. no further questions.
--- NOTE | 2020-09-19 14:00 | NUR ---
returned to semifowlers position with kenney, rt and 4 rn assist. well tolerated. sao2 remained normal. low urine output per woodruff despite previous albumin/lasix. upon respositioning, no urine output per woodruff. replaced 18fr woodruff with sterile technique. immediate return of 500cc urine, then clamped intermittently until total of 2,500cc urine obtained. initially red tinged urine obtained with white fluffy sediment, then urine progressed to clear. bolus tube feeding vital hp 480cc given. noting plantar surface dipti feet and fingers dusky blue. all extremities remain elevated.
[2020-09-20] VITALS (33 sets, daily range): BP systolic 91–162; BP diastolic 38–121
--- NOTE | 2020-09-20 02:09 | NUR ---
PATIENT SEDATED/INTUBATED. PERRL, VSS, AFEBRILE. SPOKE WITH MICHAEL GAMINO, UPDATED HIM ON PATIENT'S CONDITION, MEDICATION, VENT SETTING, AND POC. ALL QUESTIONS WERE ANSWERED. CONNECTED TO FACETIME PATIENT. PATIENT PRONED AT 0100, FIO2 INCREASED TO 65%, SATO2 95% AT THIS TIME.
[2020-09-20 05:11] LABS: HEMATOCRIT 34.3 % (37.0-47.0); HEMOGLOBIN 11.2 gm/dL (12.0-15.0); MCH 27.5 pg (26.0-34.0); MCHC 32.6 g/dL (28.0-37.0); MCV 84.4 fL (80.0-100.0); PLATELET COUNT 257 thou/uL (150-400); RBC 4.07 mil/uL (4.20-5.00); RDW 15.6 % (10.5-14.5); WBC 7.8 thou/uL (4.0-11.0)
[2020-09-20 05:16] LABS: ALBUMIN 1.9 g/dL (3.4-5.0); CALCIUM 8.3 mg/dL (8.5-10.1); CREATININE 0.5 mg/dL (0.6-1.0); POTASSIUM 4.2 mmol/L (3.5-5.1); TOTAL BILIRUBIN 0.4 mg/dL (0.2-1.0); TOTAL PROTEIN 4.9 g/dL (6.4-8.2)
[2020-09-20 05:46] LABS: ABSOLUTE NEUTROPHILS 7.4 thou/uL (1.4-8.2); MYELOCYTES 1 %
--- NOTE | 2020-09-20 09:31 | NUR ---
ASSUMED CARE OF PT AT 0700. LUCINDA AT BEDSIDE AT 0915, NO NEW ORDERS GIVEN
--- NOTE | 2020-09-20 16:15 | NUR ---
Spoke with Asaf Kohlialejandro / spouse at [phone] and learned he has been in touch with nursing and plans to visit outside of patients rooms. Explained that ID will alert team of when patient can be taken out of precautions and at that point he will be updated. Provided support as patient remains sedated, intubated with noted Fi02 decreasing and good productivity with IPV. CM to continue to follow for discharge needs.
[2020-09-20 19:22] LABS: HEMATOCRIT 29.6 % (37.0-47.0); HEMOGLOBIN 9.7 gm/dL (12.0-15.0)
[2020-09-21] VITALS (27 sets, daily range): BP systolic 117–166; BP diastolic 43–115
--- NOTE | 2020-09-21 01:16 | NUR ---
PATIENT'S SATO2 LOW AT 83% ON AC FiO2 100%, PEEP 10, AND INCREASED TV 450. SEDATION AT MAX PROPOFOL 80MCG, FENTANYL @100MCG, AND VERSED @6MG. DR JANE NOTIFIED, NEW ORDERS TO PRONE PATIENT AND PUT HER ON NIMBEX DRIP.ORDERS IMPLEMENTED
--- NOTE | 2020-09-21 01:28 | NUR ---
PATIENT'S TEMP 94.1, EXTREMETIES VERY COLD. ROOM TEMP ADJUSTED AND PT PLACED ON ALISA HUGGER. CORE TEMP NOW 97.2 CALLED AND WAS UPDATED AND EDUCATED ON PATIENT'S CONDITION, MEDICATION, VENT SETINGS AND POC. QUESTIONS ANSWERED.
--- NOTE | 2020-09-21 01:38 | NUR ---
PATIENT PRONED AT MIDNIGHT. NOTED IMPROVED VITALS ALMOST IMMEDIATELY AND SATO2 NOW 100% ON INTITIAL VENT SETTINGS.
[2020-09-21 09:05] LABS: HEMATOCRIT 24.7 % (37.0-47.0); HEMOGLOBIN 8.1 gm/dL (12.0-15.0); MCH 27.6 pg (26.0-34.0); MCHC 32.7 g/dL (28.0-37.0); MCV 84.5 fL (80.0-100.0); PLATELET COUNT 247 thou/uL (150-400); RBC 2.92 mil/uL (4.20-5.00); RDW 15.3 % (10.5-14.5); WBC 8.9 thou/uL (4.0-11.0)
[2020-09-21 09:21] LABS: ALBUMIN 1.8 g/dL (3.4-5.0); CALCIUM 7.7 mg/dL (8.5-10.1); CREATININE 0.5 mg/dL (0.6-1.0); MAGNESIUM 2.1 mg/dL (1.8-2.4); TOTAL BILIRUBIN 0.3 mg/dL (0.2-1.0); TOTAL PROTEIN 4.5 g/dL (6.4-8.2)
[2020-09-21 10:21] LABS: ABSOLUTE NEUTROPHILS 7.8 thou/uL (1.4-8.2); METAMYELOCYTES 1 %; PLATELET ESTIMATE NORMAL
--- NOTE | 2020-09-21 17:10 | NUR ---
IN TO SEE PATIENT FROM THE [facility] FOR 15 MINUTES THIS AFTERNOON. QNS ANSWERED. SHORTLY AFTER THAT PATIENT'S DAUGHTER JUANITO CALLED AND WAS UPDATED AND QNS ANSWERED.
--- NOTE | 2020-09-21 17:12 | NUR ---
ON THE VENT SEDATED, VITALS STABLE. WAS IN PRONE POSITION THIS MORNING AND WAS PLACED ON HER BACK AT 1230 THIS AFTERNOON. NOT ABLE TO WEAN DOWN O2, PATIENT STILL ON 100% AND PEEP 12. BOLUS TF ADMINISTERED WHEN PATIEN IN SEMI FOWLERS POSITION. ASSESSMENT DOCUMENTED.
--- NOTE | 2020-09-21 21:00 | NUR ---
This RN spoke with Asaf, patients spouse at 2044 for about 10 minutes regarding patient care. Updated on status, plan to facetime him tonight to talk with patient.
--- NOTE | 2020-09-21 22:22 | NUR ---
This RN spoke with Dr Olivera regarding noticeble signs of bleeding, including blood urine and blood leaking around central line. No new orders, instructed to continue to monitor.
--- NOTE | 2020-09-21 22:22 | NUR ---
Patients spouse, Asaf kimimed patient at 2200 for about 15 minutes.
[2020-09-21 22:56] LABS: HEMOGLOBIN 7.6 gm/dL (12.0-15.0)
[2020-09-22] VITALS (28 sets, daily range): BP systolic 120–177; BP diastolic 46–62
--- NOTE | 2020-09-22 01:33 | NUR ---
Patient proned at 0100. Tolerated well. Remains on 100% FiO2 for now. Will continue to monitor.
[2020-09-22 05:15] LABS: HEMOGLOBIN 7.5 gm/dL (12.0-15.0); MCH 27.7 pg (26.0-34.0); MCHC 32.5 g/dL (28.0-37.0); MCV 85.5 fL (80.0-100.0); RBC 2.69 mil/uL (4.20-5.00); RDW 15.3 % (10.5-14.5); WBC 9.2 thou/uL (4.0-11.0)
[2020-09-22 05:51] LABS: CALCIUM 7.8 mg/dL (8.5-10.1); CREATININE 0.6 mg/dL (0.6-1.0); POTASSIUM 4.7 mmol/L (3.5-5.1)
--- NOTE | 2020-09-22 06:27 | NUR ---
At 0530, patients tidal volumes became inconsistent and much lower. Audible air leakage present. RT and RN decided to flip patient back from prone position to supine to be able to assess better. ETT patent. Ordered stat chest x ray. Notable blood coming rom ETT. ETT to be retaped and confirmed. Vital signs okay. Blood also leaking around central line and urine is blood tinged. RN called Dr Garcia at 0615 to discuss event and patient manifestations. Ordered a DIC panel and to hold the lovenox. Will continue to monitor.
[2020-09-22 09:02] LABS: HEMATOCRIT 22.9 % (37.0-47.0); HEMOGLOBIN 7.5 gm/dL (12.0-15.0)
[2020-09-22 09:16] LABS: APTT 29.5 Seconds (24.5-32.8); D-DIMER 0.39 ug/mLFEU (0.19-0.50); PROTIME 9.6 Seconds (9.3-11.4)
[2020-09-22 09:21] LABS: FIBRINOGEN 563.7 mg/dL (210-360)
--- NOTE | 2020-09-22 15:34 | NUR ---
SW reviewed chart and spoke with nursing. Pt remains intubated and sedated. Pt is afebrile and on IV steroids. Discussion with family regarding possible trach/peg placement when pt is stable. Pt is bleeding. SW is following to assist as needed with discharge planning.
--- NOTE | 2020-09-22 16:34 | NUR ---
ASSUMED CARE OF THE PATIENT AT 0700 SPOKE TO PT'S AT [address] POC [address] SINGH AT BEDSIDE AT 1038, NO NEW ORDERS GIVEN SPOKE TO PT'S DAUGHTER AT 1230 AND SHE WOULD LIKE TO SEE IF SHE CAN COME UP AND SEE HER MOM. DR. NEWTON AT BEDSIDE AT 1245, NO NEW ORDERS GIVEN
--- NOTE | 2020-09-22 20:45 | NUR ---
This RN spoke to Asaf, spouse at 2240. Updated on patient status. Plan to facetime soon.
[2020-09-22 23:05] LABS: HEMATOCRIT 20.8 % (37.0-47.0); HEMOGLOBIN 6.6 gm/dL (12.0-15.0)
[2020-09-23] VITALS (33 sets, daily range): BP systolic 105–179; BP diastolic 40–58
--- NOTE | 2020-09-23 02:47 | NUR ---
This RN spoke to JASPER Segundo regarding patients low hbg and hct. Ordered to redraw with morning labs, and go from there. Will continue to monitor.
[2020-09-23 06:16] LABS: MCHC 32.7 g/dL (28.0-37.0); MCV 85.5 fL (80.0-100.0); RBC 2.26 mil/uL (4.20-5.00); RDW 15.8 % (10.5-14.5); WBC 9.6 thou/uL (4.0-11.0)
[2020-09-23 06:20] LABS: HEMOGLOBIN 6.3 gm/dL (12.0-15.0)
[2020-09-23 06:21] LABS: HEMATOCRIT 19.3 % (37.0-47.0)
[2020-09-23 06:23] LABS: CREATININE 0.7 mg/dL (0.6-1.0)
--- NOTE | 2020-09-23 06:38 | NUR ---
Received critical Hmg and Hct lab results. Called Ratna Walker NP at 0630. Received new orders to transfuse 2 units PRBC's. Will continue to monitor.
--- NOTE | 2020-09-23 06:43 | NUR ---
Patients , Asaf facetimed patient at 2300 last night for 20 minutes.
--- NOTE | 2020-09-23 11:07 | NUR ---
ASSUMED CARE OF PT AT 0700 DAUGHTER CALLED AT 1055 TO GET AN UPDATE DUE TO HER FATHER BEING BUSY AT WORK. DR. SINGH HUGO AT 1100 TO CHECK TO SEE IF THE PATIENT WAS STILL BLEEDING AND IF SHE HAD RECEIVED HER PACKED RED BLOOD CELLS YET. SHE IS CONSULTING UROLOGY REGARDING THE BLEEDING FROM THE BLADDER. SPOKE TO MR. GAMINO AND GOT CONCENT FOR THE BLOOD PRODUCT. DR. SINGH AT BEDSIDE AT 1110 AND SHE WOULD LIKE HER HEMAGLOBIN CHECKED 8 HOURS AFTER THE COMPLETION OF THE PACKED RED BLOOD CELLS. SHE WANTS HER HEMAGLOBIN CHECKED EVERY 8 HOURS IF IT IS BELOW 7
--- NOTE | 2020-09-23 11:33 | NUR ---
Tube feed clarification: bolus 1 carton (240ml) vital HP, 4 times daily. Defer any water flush needs to physician as pt is edematous.
[2020-09-23 18:25] LABS: URINE BLOOD 3+ (Negative); URINE GLUCOSE-RANDOM* NEGATIVE (Negative); URINE KETONES NEGATIVE (Negative); URINE LEUKOCYTES 3+ (Negative); URINE NITRITE NEGATIVE (Negative); URINE PROTEIN (DIPSTICK) 2+ (Negative); URINE SPECIFIC GRAVITY <= 1.005 (1.005-1.035); URINE UROBILINOGEN 0.2 E.U./dl (0.2-1.0)
[2020-09-23 18:28] LABS: ICTOTEST (BILI CONFIRMATORY) Negative (Negative); URINE BILIRUBIN NEGATIVE (Negative); URINE CLARITY CLOUDY; URINE COLOR REDDISH
[2020-09-23 18:48] LABS: SQUAMOUS 4-10 Moderate /LPF (0-3); URINE RBC >20 Many /HPF (0-2); URINE WBC 6-15 Few /HPF (0-5)
[2020-09-23 18:49] LABS: CASTS None Seen /LPF (None Seen); CRYSTALS None Seen /LPF (None Seen); YEAST Present (None Seen)
[2020-09-23 21:41] LABS: HEMATOCRIT 21.9 % (37.0-47.0); HEMOGLOBIN 7.3 gm/dL (12.0-15.0)
--- NOTE | 2020-09-23 21:50 | NUR ---
UPON ASSUMING CARE AT SHIFT CHANGE, PT PEAK PRESSURES ON VENTILATOR >50, RR 35, BP 155/55. SEDATION INCREASED, RT IN ROOM TO DO ASSESSMENT AND MAKE CHANGES NEEDED. MORPHINE GIVEN FOR VENT MANAGEMENT AND TO SEE IF PT HAS PAIN NEEDS. SPOKE WITH AROUND 2044, TOLD HIM THAT THIS RN WOULD CALL HIM VIA TABLET SOON IT WAS AVAILABLE, DID INFORM THAT THERE WAS A WAIT TIME FOR THE USE OF TABLET.
--- NOTE | 2020-09-23 23:22 | NUR ---
attempted to call luis at [phone] once ipad became available. no answer
[2020-09-24] VITALS (35 sets, daily range): BP systolic 103–163; BP diastolic 42–67
[2020-09-24 04:55] LABS: BE(vivo) 10.5 mmol/L (-2 to +3); HCO3 38.9 mmol/L (22.0-26.0); PCO2 84.2 mmHg (35.0-45.0); PO2 72.7 mmHg (80.0-100.0); pH 7.282 (7.360-7.450); sO2 91.7 % (92.0-98.0)
[2020-09-24 05:31] LABS: HEMATOCRIT 21.9 % (37.0-47.0); HEMOGLOBIN 7.1 gm/dL (12.0-15.0); MCH 27.9 pg (26.0-34.0); MCHC 32.2 g/dL (28.0-37.0); MCV 86.8 fL (80.0-100.0); RBC 2.53 mil/uL (4.20-5.00); WBC 11.2 thou/uL (4.0-11.0)
[2020-09-24 05:53] LABS: CALCIUM 8.7 mg/dL (8.5-10.1); CREATININE 0.6 mg/dL (0.6-1.0); POTASSIUM 5.1 mmol/L (3.5-5.1)
--- NOTE | 2020-09-24 06:33 | NUR ---
MICHAEL WAS ABLE TO FACETIME WITH PT AT 0305. PT REQUIRING 100% FI02, IMPROVED OXYGENATION ON PC VENT SETTINGS, NOTIFIED DR. NEWTON OF ABG, NO NEW ORDERS. HR AND BP STABLE. TV <450. NOT PROGRESSING TOWARD GOALS
--- NOTE | 2020-09-24 10:40 | NUR ---
ELYSSA Garcia with urology present. updated on pt status. she irrigated woodruff & having difficulty with urine return. she replaced woodruff with 18fr with sterile technique.
--- NOTE | 2020-09-24 12:50 | NUR ---
Asaf, spouse previously called, rn updated on status including- on vent with sedation and pain medication, fio2 increased to 100%. he requested to face time this evening. rn offered to set it up now since ipad available. he is agreeable. he is face timing now with the opportunity face time as long as he preferred.
--- NOTE | 2020-09-24 15:05 | NUR ---
chart review. she remains on vent with nutritional support. noted spouse has been able to face time with arcenio. no anticipated dc through weekend. will cont following as needed for dc need.
--- NOTE | 2020-09-24 15:25 | NUR ---
prbc's started at 1450. verbalized to Dr. Olivera- there is fungus and a small amount of bacteria in the urine.
[2020-09-24 18:42] LABS: HEMATOCRIT 28.1 % (37.0-47.0)
[2020-09-24 19:00] LABS: HEMOGLOBIN 9.3 gm/dL (12.0-15.0)
--- NOTE | 2020-09-24 22:39 | NUR ---
discussed with dr. rdz current status and sas 88-89% on [id number] may prone pt, avoid barotrauma by increasing peep at this time
[2020-09-25] VITALS (40 sets, daily range): BP systolic 116–219; BP diastolic 51–74
--- NOTE | 2020-09-25 00:50 | NUR ---
PT PRONED AT 0035, INITIAL DESAT TO 83%, CURRENTLY 93-95% ON FI02 100%.
[2020-09-25 04:59] LABS: HEMATOCRIT 27.2 % (37.0-47.0); HEMOGLOBIN 8.9 gm/dL (12.0-15.0); MCH 28.3 pg (26.0-34.0); MCHC 32.6 g/dL (28.0-37.0); MCV 86.9 fL (80.0-100.0); RBC 3.13 mil/uL (4.20-5.00); RDW 15.2 % (10.5-14.5)
[2020-09-25 05:12] LABS: CALCIUM 8.6 mg/dL (8.5-10.1); CREATININE 0.6 mg/dL (0.6-1.0); POTASSIUM 4.5 mmol/L (3.5-5.1)
--- NOTE | 2020-09-25 11:45 | NUR ---
>>>>>>>>>>>>>>>>>1100 Dr. Bangura present, updated on pt status including hematuria that reoccured after initial lovenox dose and general pt status. >>>>>>>>>>>>>>>>>1115 rn returned call to Asaf Yadav- spouse. updated on pt status including bleeding in urine after medication to prevent DVT/PE restarted, pt positioned on her abdomen to improve her lung status and fi02 slowly decreased to 70%. He is requesting to face time at 1500. >>>>>>>>>>>>>>>>>1145 Dr. Garcia present. updated on pulmonary status including fi02 down to 70% and hematuria that reoccured after initial lovenox dose. lovenox dc'd.
--- NOTE | 2020-09-25 15:10 | NUR ---
Asaf Yadav-spouse face timed with for as long as he preferred. he was also updated that pt repositioned out of proning and ok34-359%.
--- NOTE | 2020-09-25 15:29 | NUR ---
noted bp elevated. pt resting comfortably, sedated on vent with bp 209/68. increased propofol to 60 mcg/kg/min, upon recycling bp 203/68. bp recheck 219/68. page placed to Dr. Bangura with call immediately returned. rn updated, order pending for hydralazine.
--- NOTE | 2020-09-25 16:00 | NUR ---
irrigated woodruff with sterile technique. flushed with sterile water 120cc, obtained 2 large pieces of dark brown sediment, flushed with ease and all sterile water removed. woodruff with 700cc immediate return of urine tinged with fine blood sediment.
--- NOTE | 2020-09-25 23:08 | NUR ---
CALL TO DR. NEWTON REGARDING PT STATUS, VIALS CHANGING, UNABLE TO GET PT RR <35, HR IRREGULAR AND UP TO 125. EKG SHOWED ST WITH PACS. AFEBRILE, BP ELEVATED AT TIME OF ASSESSMENT, GAVE HYDRALAZINE WHEN ABLE. PRNS GIVEN, SEE MAR. DISCUSSED STATUS WITH DR. NEWTON INCLUDING VS FROM EARLIER AROUND 1500. CONTINUES TO HAVE HEMATURIA, UNABLE TO TAKE FOR CT HEAD PT IS ON FI02 100% SATS 92-93%. SEDATION ADJUSTED. ORDERS FROM DR NEWTON FOR ANTIHYPERTENSIVES, ATTEMPT TO KEEP PT RR<30, HR <100, SBP<150, DBP<90.
--- NOTE | 2020-09-25 23:16 | NUR ---
MICHAEL ABLE TO FT WITH PT AROUND 2034.
[2020-09-26] VITALS (76 sets, daily range): BP systolic 95–140; BP diastolic 40–61
[2020-09-26 10:21] LABS: CREATININE 0.6 mg/dL (0.6-1.0)
[2020-09-26 10:22] LABS: POTASSIUM 4.3 mmol/L (3.5-5.1)
[2020-09-26 10:48] LABS: HEMATOCRIT 26.9 % (37.0-47.0); HEMOGLOBIN 8.6 gm/dL (12.0-15.0); MCH 28.3 pg (26.0-34.0); MCHC 31.9 g/dL (28.0-37.0); MCV 88.6 fL (80.0-100.0); RBC 3.04 mil/uL (4.20-5.00); RDW 15.5 % (10.5-14.5)
[2020-09-26 11:09] LABS: BE(vivo) 14.3 mmol/L (-2 to +3); HCO3 44.2 mmol/L (22.0-26.0); PCO2 97.2 mmHg (35.0-45.0); PO2 47.6 mmHg (80.0-100.0); pH 7.276 (7.360-7.450); sO2 74.7 % (92.0-98.0)
[2020-09-26 11:10] LABS: HEMATOCRIT 27.5 % (37.0-47.0); HEMOGLOBIN 8.9 gm/dL (12.0-15.0); MCH 28.4 pg (26.0-34.0); MCHC 32.3 g/dL (28.0-37.0); MCV 87.9 fL (80.0-100.0); RBC 3.13 mil/uL (4.20-5.00); WBC 15.4 thou/uL (4.0-11.0)
--- NOTE | 2020-09-26 15:00 | NUR ---
PT INTUBATED AND SEDATED, UNABLE TO TITRATE VENT SETTINGS. PT BECOMES TACHYCARDIC/TACHYPNEIC OFF OF SEDATION. HEMODYNAMICALLY DOES NOT TOLERATE TURNS. PT AFEBRILE, POLYUREA (HEMATURIA), NO BM, TOLERATING TUBE FEEDS. RN WAS NOT ABLE TO ILICIT A COUGH/GAG, NEGATIVE CORNEAL REGLEX, DOES NOT WITHDRAW TO PAINFUL STIMULI. [facility] NOTIFIED OF DECLINE IN CONDITION, REFERENCE NUMBER IS [id number]. FAMILY CAME TO SEE PT TODAY DUE TO POSSIBLE END OF LIFE CARE. PT CONTINUES TO BE FULL CODE. PT AND FAMILY HAVE BEEN UPDATED AND EDUCATED ON PT CONDITION AND POC. PT NOT PROGRESSING TOWARDS POC.
[2020-09-26 22:00] LABS: BE(vivo) 15.2 mmol/L (-2 to +3); HCO3 46.3 mmol/L (22.0-26.0); PCO2 115.7 mmHg (35.0-45.0); PO2 48.3 mmHg (80.0-100.0); sO2 71.9 % (92.0-98.0)
[2020-09-26 22:24] LABS: ALBUMIN 1.8 g/dL (3.4-5.0); ANION GAP < 0 mmol/L (7-16); BUN 51 mg/dL (7-18); CALCIUM 8.9 mg/dL (8.5-10.1); CHLORIDE 95 mmol/L (98-107); CO2 44 mmol/L (21-32); CREATININE 0.8 mg/dL (0.6-1.0); GLUCOSE 239 mg/dL (74-106); POTASSIUM 4.9 mmol/L (3.5-5.1); SGOT 44 U/L (15-37); SGPT 89 U/L (30-65); SODIUM 138 mmol/L (136-145); TOTAL BILIRUBIN 0.5 mg/dL (0.2-1.0); TOTAL PROTEIN 5.3 g/dL (6.4-8.2); TROPONIN-I 0.07 ng/mL (<0.06)
[2020-09-27] VITALS (100 sets, daily range): BP systolic 93–142; BP diastolic 45–65
[2020-09-27 01:07] LABS: BE(vivo) 15.5 mmol/L (-2 to +3); HCO3 47.7 mmol/L (22.0-26.0); sO2 80.4 % (92.0-98.0)
[2020-09-27 01:08] LABS: PCO2 129.1 mmHg (35.0-45.0); pH 7.185 (7.360-7.450)
--- NOTE | 2020-09-27 02:10 | NUR ---
PATIENT INTUBATED/SEDATED. NO GAG/COUGH OR CORNEAL REFLEXES NOTED. PATIENT WENT INTO AFIB WITH RVR @2017, HR 120s-170s, SATO2 80-86% WITH INCREASED PEEP 14, RR 36, SBP 114/[address] MAX[address] ON SEDATION. DR JANE NOTIFIED. NEW ORDERS GIVEN, AMIODARONE BOLUS GIVEN AND GTT STARTED.
--- NOTE | 2020-09-27 02:26 | NUR ---
SATO2 DOWN 54%-79%, HR 110s-120s AND CONVERTED TO SINUS TACH.NEW ORDERS FOR STAT CXR, ABGs, BNP/CMP/TROPONIN. MIN COMPLETED AND PATIENT PRONED AT 2300.
[2020-09-27 04:43] LABS: HEMATOCRIT 27.5 % (37.0-47.0); HEMOGLOBIN 8.5 gm/dL (12.0-15.0); MCH 28.1 pg (26.0-34.0); MCHC 31.1 g/dL (28.0-37.0); MCV 90.4 fL (80.0-100.0); RBC 3.04 mil/uL (4.20-5.00); RDW 15.7 % (10.5-14.5)
[2020-09-27 04:51] LABS: PLATELET COUNT 296 thou/uL (150-400)
[2020-09-27 05:02] LABS: ALBUMIN 2.3 g/dL (3.4-5.0); ANION GAP < 0 mmol/L (7-16); BUN 57 mg/dL (7-18); CALCIUM 8.9 mg/dL (8.5-10.1); CHLORIDE 94 mmol/L (98-107); CO2 42 mmol/L (21-32); CREATININE 0.8 mg/dL (0.6-1.0); GLUCOSE 255 mg/dL (74-106); POTASSIUM 5.2 mmol/L (3.5-5.1); SGOT 50 U/L (15-37); SGPT 96 U/L (30-65); SODIUM 135 mmol/L (136-145); TOTAL BILIRUBIN 0.7 mg/dL (0.2-1.0); TOTAL PROTEIN 5.9 g/dL (6.4-8.2); TRIGLYCERIDE 116 mg/dL (<150)
[2020-09-27 05:19] LABS: BE(vivo) 13.6 mmol/L (-2 to +3); HCO3 48.8 mmol/L (22.0-26.0); PCO2 180.6 mmHg (35.0-45.0); PO2 83.1 mmHg (80.0-100.0); sO2 88.2 % (92.0-98.0)
[2020-09-27 05:20] LABS: ABSOLUTE NEUTROPHILS 19.8 thou/uL (1.4-8.2); METAMYELOCYTES 1 %
--- NOTE | 2020-09-27 07:26 | EKG ---
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: [employer]OR : 1955 Requested By: Watson Garcia Order Number: [id number] MD: Harish Rosario Measurements Intervals [place] Rate: 106 P: 47 MI: 135 QRS: 42 QRSD: 83 T: 58 QT: 328 QTc: 436 Interpretive Statements Sinus tachycardia Atrial premature complex Baseline wander in lead(s) V3 Compared to ECG 09/09/2020 09:33:34 Atrial premature complex(es) now present Sinus rhythm no longer present Left ventricular hypertrophy no longer present T-wave abnormality no longer present Electronically Signed On 09-27-2020 7:25:53 [employer] by Harish Rosario [email or web address] <ELECTRONICALLY SIGNED> By: Harish Rosario MD, FAC 09/27/20 0725 11 11 Harish Rosario MD, [facility] /EPI
[2020-09-27 08:47] LABS: BE(vivo) 15.4 mmol/L (-2 to +3); HCO3 46.6 mmol/L (22.0-26.0)
[2020-09-27 08:48] LABS: PCO2 112.2 mmHg (35.0-45.0); PO2 47.6 mmHg (80.0-100.0); pH 7.236 (7.360-7.450)
--- NOTE | 2020-09-27 16:53 | NUR ---
PATIENT CONTINUES TO STAY PRONED. NIMBEX GTT CONTINUES. ARRIVES TO ICU TO VISIT AT 1630. LEVOPHED, AMIODARONE, PROPOFOL, VERSED, FENTANYL CONTINUE. NO ACUTE CHANGES PATIENT REMAINS 100% FIO2. BM TODAY.
[2020-09-28] VITALS (89 sets, daily range): BP systolic 110–174; BP diastolic 47–71
--- NOTE | 2020-09-28 05:45 | NUR ---
PATIENT REMAINS PRONED TO SUPPORT GAS EXCHANGE. ON NIMBEX, PNS LOCATION AT RIGHT FOREHEAD, BASELINE INTENSITY 5, AND TOF 2/4. VSS STABLE ON LEVOPHED AND AMIODARONE GTT. TEMP WNL WITH ALISA HAGGER ON. PATIENT IS SEDATED ON PROPOOL, VERSED, AND FENTANYL. SATO2 90-94% OVERNIGHT. NO BLEEDING AROUND TRACH, AND NO HEMAURIA. UOP 225ML OVERNIGHT- DARK JOHN/GREENISH WITH SEDIMENTS. NO GASTRIC RESIDUAL NOTED, 240ML TF BOLUS GIVEN AT MN FOR BG 74. BLOOD GLUCOSE THIS AM 143.
--- NOTE | 2020-09-28 13:15 | NUR ---
assumed care 0700. Pt proned. orders per swetha to unprone patient. updated regarding pt status overnight @0930. 1215 pt supine 02 sat persistnent at 73% Swetha notified. continue to suction. will add prn nimbex bolus per swetha. 1310 Dr. reed notified stated he will get in touch with . 1315 updated on change in pt status.
[2020-09-28 17:06] LABS: HEMATOCRIT 22.1 % (37.0-47.0); HEMOGLOBIN 7.4 gm/dL (12.0-15.0)
--- NOTE | 2020-09-28 17:07 | NUR ---
chart reviewed, remains on vent. nutritional support. prone when able. noted bedside nurse provided updates to luis. will cont following as needed for dc needs.
[2020-09-29] VITALS (119 sets, daily range): BP systolic 99–162; BP diastolic 42–67
--- NOTE | 2020-09-29 03:05 | NUR ---
pt proned at 0015, sats dropped to 70% but eventually came up to 89-90%. hr in and out of afib, rate controlled under 110. currently in sr 60's. albumin then lasix given, blood started as soon as lab made aware that it was available.
--- NOTE | 2020-09-29 03:05 | NUR ---
unable to get temp on pt either orally or axillary for blood transfusion. placed on dolores hugger and will cont to attempt to obtain temp
[2020-09-29 03:52] LABS: BE(vivo) 8.6 mmol/L (-2 to +3); HCO3 36.5 mmol/L (22.0-26.0); PO2 70.1 mmHg (80.0-100.0); sO2 91.8 % (92.0-98.0)
[2020-09-29 03:54] LABS: PCO2 73.9 mmHg (35.0-45.0); pH 7.312 (7.360-7.450)
--- NOTE | 2020-09-29 04:59 | NUR ---
TRANSFUSION COMPLETED WITHOUT REACTION, CURRENTLY TOLERATING SETTINGS AND SEDATION, MONITORING TOF WITH NIMBEX. X3 STOOL, BROWN, SEMI LIQUID. CVP 22-25. SPOKE WITH MICHAEL APPROXIMATELY 2100, GAVE UPDATE AND WAS ABLE TO FT WITH PATIENT FOR SOME TIME. PT NOT PROGRESSING TOWARD GOALS
[2020-09-29 06:39] LABS: HEMATOCRIT 24.8 % (37.0-47.0); HEMOGLOBIN 8.2 gm/dL (12.0-15.0); MCH 29.4 pg (26.0-34.0); MCHC 33.2 g/dL (28.0-37.0); MCV 88.5 fL (80.0-100.0); RDW 15.2 % (10.5-14.5); WBC 10.6 thou/uL (4.0-11.0)
[2020-09-29 06:46] LABS: PLATELET COUNT 171 thou/uL (150-400)
[2020-09-29 06:50] LABS: ALBUMIN 2.3 g/dL (3.4-5.0); CALCIUM 7.7 mg/dL (8.5-10.1); CREATININE 1.5 mg/dL (0.6-1.0); TOTAL BILIRUBIN 0.9 mg/dL (0.2-1.0)
[2020-09-29 08:54] LABS: ABSOLUTE NEUTROPHILS 9.5 thou/uL (1.4-8.2); METAMYELOCYTES 1 %; PLATELET ESTIMATE NORMAL
--- NOTE | 2020-09-29 19:27 | NUR ---
assumed care of pt 0700. pt in prone position until 1500. 02 sat supine 89-91% today. updated [address] Bangura notified of worsening rash on pt chest and neck. no new orders at this time. fms in place. nimbex gtt d/c'd. tmax 98.3
[2020-09-30] VITALS (104 sets, daily range): BP systolic 103–194; BP diastolic 41–81
--- NOTE | 2020-09-30 03:26 | NUR ---
PRONED AT 0100, SATS TO 80%, RECOVERED SLOWLY CURRENTLY 91%. NOT PROGRESSING TOWARD GOALS
[2020-09-30 05:19] LABS: HEMATOCRIT 26.7 % (37.0-47.0); HEMOGLOBIN 8.9 gm/dL (12.0-15.0); MCH 29.2 pg (26.0-34.0); MCHC 33.2 g/dL (28.0-37.0); MCV 87.8 fL (80.0-100.0); RBC 3.04 mil/uL (4.20-5.00); RDW 15.3 % (10.5-14.5); WBC 12.3 thou/uL (4.0-11.0)
[2020-09-30 05:37] LABS: CALCIUM 7.2 mg/dL (8.5-10.1); POTASSIUM 5.3 mmol/L (3.5-5.1)
--- NOTE | 2020-09-30 18:14 | NUR ---
SUPINATED AT 1200. PT SPO2 AROUND 87%. URINE OUTPUT REMAINS AROUND 25-30CC/HR. PT REMAINS HEAVILY SEDATED FOR VENT TOLERANCE. UPDATE GIVEN TO PT'S TODAY WHEN HE CALLED. PT CONDITION IS GRIM. PT NOT PROGRESSING TOWARD GOALS.
--- NOTE | 2020-09-30 22:15 | NUR ---
UPDATED AND FACETIME SET UP WITH IPAD AROUND 2100. STATES UNDERSTANDING WHEN THIS RN EXPRESSES HOW SICK PT IS, BUT STATES "I HAVE TO HOLD ONTO EVERY LITTLE BIT OF HOPE."
[2020-10-01] VITALS (101 sets, daily range): BP systolic 80–178; BP diastolic 35–74
--- NOTE | 2020-10-01 04:34 | NUR ---
PRONED AT 0030, SATS DOWN TO 69%, REACHED 88% WITHIN 2 HOURS. CURRENTLY 93%. CREAM APPLIED TO ALL AREAS OF RASH, PILLOWS ON EXREMITIES, CVP ZEROED. PT IS NOT PROGRESSING TOWARD GOALS.
--- NOTE | 2020-10-01 08:41 | NUR ---
Dr. Faulkner here and nurse discussed current blood pressure with him. Order for levophed to start, no poning after supination today, and he expressed he will call her family. Urine ouput is 10 ml in a few hours, this was noted to Dr. Faulkner. Lasix and albumin already given, order to hold 0900 lasix dose at this time this morning. Nurse irrigated woodruff, three small clots came out and all irrigation amount went into woodruff.
--- NOTE | 2020-10-01 10:38 | NUR ---
If feeding pump available, recommend change to continous feed of 40ml/hr Vital HP. Defer any fluid flush needs to physician.
[2020-10-01 11:05] LABS: HEMATOCRIT 28.5 % (37.0-47.0); HEMOGLOBIN 9.4 gm/dL (12.0-15.0); MCH 29.5 pg (26.0-34.0); MCV 89.4 fL (80.0-100.0); RBC 3.19 mil/uL (4.20-5.00); RDW 15.8 % (10.5-14.5); WBC 15.9 thou/uL (4.0-11.0)
[2020-10-01 11:11] LABS: CREATININE 1.6 mg/dL (0.6-1.0); POTASSIUM 3.8 mmol/L (3.5-5.1)
[2020-10-01 11:12] LABS: CALCIUM 5.4 mg/dL (8.5-10.1)
--- NOTE | 2020-10-01 11:42 | NUR ---
1142 NURSE BLADDER SCAN PATIENT 147 ML NOTED FIRST TIME, 99ML NOTED SECOND TIME. NURSE TO INFORM PHYSICIAN.
--- NOTE | 2020-10-01 11:42 | NUR ---
1130-= PATIENT SWITCHED TO SUPINE POSITIONING.
--- NOTE | 2020-10-01 12:05 | NUR ---
5827- Sent message to Dr. Bangura in regards to patient status, on levophed, patient now supine, no urine output, got albumin and lasix and a 500ml bolus, and bladder scanned patient with results. Nurse informed her this was all relayed to Dr. Faulkner also. She expressed to follow Dr. Wick recommendations secondary to patients critical nature.
--- NOTE | 2020-10-01 13:08 | NUR ---
1308- Nurse talked with patients spouse and updated him on patients status. Nurse informed him of low urine output, need for levophed, some labs, current oxygenation saturation in the 80%s, and overall condition. Informed him of the albumin/lasix to attempt to help her urine output.
--- NOTE | 2020-10-01 14:10 | NUR ---
1325=- UNABLE TO OBTAIN TEMP READING, BLANKET WARMER PLACED.
--- NOTE | 2020-10-01 15:00 | NUR ---
1500- Dr. Olivera rounded, he was updated on low blood pressure readings, levophed gtt while prone, then with supine position, off levophed. Informed him of fluid bolus, albumin, and lasix given with urine output <10ml/hour. Informed him of need for blanket warmer. Will await orders.
--- NOTE | 2020-10-01 20:30 | NUR ---
Patient not progressing towards plan of care as evidenced by continued need for ventilator support and oxygenation saturations less than 90%. Nurse updated Dr. Bangura today, orders received with critical results. Nurse updated Dr. Faulkner today, orders received. Only 50 ml urine output noted today, bladder scan multiple times, last few times results were zero ml. This was informed to physician. Plan of care is to continue to monitor patient status, titrate gtts as indicated/ordered, monitor for urine output, monitor oxygenation and vital signs.
[2020-10-02] VITALS (118 sets, daily range): BP systolic 101–214; BP diastolic 44–74
--- NOTE | 2020-10-02 03:15 | NUR ---
1914- NO URINE OUTPUT. MORIN CHANGED, AND IRIGATED WITH 60ML STEILE WATER AND THE SAME AMOUNT DRAWN OUT WITH SEDIMENTS. ALBUMIN AND LASIX GIVEN 2044-ERLINDA'S CALLED, UPDATED ON CONDITION, MEDICATIONS AND POC. CONNECTED ALSO TO FACETIME PATIENT.
--- NOTE | 2020-10-02 03:31 | NUR ---
2215- MIGUEL ANGEL 1ST PRESSMAN ON [employer] NOTIFIED ABOUT SITUATION, MORIN CHANGE, AND TREATMENTS. NO NEW OREDERS AT THIS TIME.
--- NOTE | 2020-10-02 03:35 | NUR ---
0325- DR. JANE NOTIED ABOUT DECREASED SATO2 80-82% SINCE TUBE FEEDING BOLUS WAS GIVEN AT 0100. ORDERS TO PRONE PATIENT GIVEN AT THIS TIME
--- NOTE | 2020-10-02 05:52 | NUR ---
PATIENT PRONED AT 0400 DUE TO LOW SATO2 79-81%. SATO2 NOW 97% AND MAINTAINING SBP WNL WITHOUT PRESSERS AT THIS.TEMP 97.8 AXILLARY
[2020-10-02 11:42] LABS: BE(vivo) -0.9 mmol/L (-2 to +3); HCO3 28.4 mmol/L (22.0-26.0); PO2 102.1 mmHg (80.0-100.0); sO2 95.9 % (92.0-98.0)
[2020-10-02 11:43] LABS: PCO2 76.9 mmHg (35.0-45.0); pH 7.185 (7.360-7.450)
[2020-10-02 11:49] LABS: HEMOGLOBIN 8.3 gm/dL (12.0-15.0); MCH 29.3 pg (26.0-34.0); MCHC 33.2 g/dL (28.0-37.0); MCV 88.3 fL (80.0-100.0); RBC 2.83 mil/uL (4.20-5.00); RDW 16.4 % (10.5-14.5); WBC 10.4 thou/uL (4.0-11.0)
[2020-10-02 12:14] LABS: ALBUMIN 2.8 g/dL (3.4-5.0); CREATININE 2.8 mg/dL (0.6-1.0); MAGNESIUM 2.7 mg/dL (1.8-2.4); POTASSIUM 5.8 mmol/L (3.5-5.1); TOTAL BILIRUBIN 0.7 mg/dL (0.2-1.0); TOTAL PROTEIN 5.2 g/dL (6.4-8.2)
[2020-10-02 12:15] LABS: CALCIUM 7.8 mg/dL (8.5-10.1)
--- NOTE | 2020-10-02 14:41 | NUR ---
SPOKE TO AROUND 0930 AND UPDATED HIM ON PATIENT CONDITION. PRONED LAST NIGHT AT MIDNIGHT DUE TO LOW SATURATIONS. MINIMAL TO NO URINE OUTPUT. DISCUSSED BLOOD WORK BEING SENT AND WILL KNOW MORE AFTER RESULTED. CRITICAL ABG AND OTHER LABS OUT OF RANGE CALLED TO DR. CONWAY. HE STATED HE WOULD TRY TO REACH . NO NEW ORDERS RECIEVED. PLACED IN SUPINE POSITION AT 13:00. SATS DOWN TO 76% BUT RECOVERED O 90% WITHIN THE HOUR.
[2020-10-03] VITALS (73 sets, daily range): BP systolic 100–162; BP diastolic 44–64
[2020-10-03 04:55] LABS: ALBUMIN 2.9 g/dL (3.4-5.0); CALCIUM 7.7 mg/dL (8.5-10.1); CREATININE 3.1 mg/dL (0.6-1.0); PHOSPHORUS 9.5 mg/dL (2.5-4.9)
[2020-10-03 05:02] LABS: POTASSIUM 6.2 mmol/L (3.5-5.1)
[2020-10-03 10:36] LABS: ALBUMIN 2.7 g/dL (3.4-5.0); CREATININE 3.1 mg/dL (0.6-1.0); POTASSIUM 5.8 mmol/L (3.5-5.1); TOTAL BILIRUBIN 0.7 mg/dL (0.2-1.0); TOTAL PROTEIN 5.2 g/dL (6.4-8.2)
--- NOTE | 2020-10-03 17:05 | NUR ---
PATIENT PRONED AT SHIFT CHANGE, FLIPPED TO SUPINE AT 1400, STATS IN MID TO HIGH 80'S SINCE FLIPPING TO SUPINE POSITION. 100 PERCENT ON THE VENT. PULM AWARE. TUBE FEEDS ON HOLD PER RENAL. FENTANYL AND DILUADID GTTS FOR VENT MANAGEMENT. ABSENT COUGH AND GAG REFLEX. HYPOTHERMIC THIS AFTERNOON, ALISA HUGGAR PLACED. ANURIC, FLUSHED MORIN, PATENT. IV INSULIN AND DEXTROSE GIVEN FOR HYPERKALEMIA. RENAL TO SPEAK WITH ABOUT POOR PROGNOSIS FROM HIS STAND POINT. REMAINS FULL CODE AT THIS TIME.
--- NOTE | 2020-10-03 20:41 | NUR ---
Asaf, spouse called unit for update at 2041 this evening. Discussed poor presenation and O2 sats. Plan to setup facetime between spouse and patient tonight.
--- NOTE | 2020-10-03 22:12 | NUR ---
This RN set up facetime for Asaf, spouse and patient at 1165. Facetimed for approximentaly 15 minutes. Will continue to monitor.
[2020-10-04] VITALS (59 sets, daily range): BP systolic 88–152; BP diastolic 36–63
--- NOTE | 2020-10-04 01:47 | NUR ---
Patient proned at 0100 this morning. Tolerated well. Will continue to monitor.
--- NOTE | 2020-10-04 04:30 | NUR ---
This RN called [facility] regarding [facility] of 3. Staff stated referral already called. Referral number is [id number]. Could not find paper chart, RN documented and placed in patients chart. Instructed to call with change of plans or status change.
--- NOTE | 2020-10-04 06:42 | NUR ---
Patient not progressing towards care plan goals. Still requiring heavy mechanical assistance and close monitoring.
--- NOTE | 2020-10-04 12:48 | NUR ---
chart review. cont vent with support, and nutritional support. bedside staff cont to update family. will cont following as needed for dc needs.
[2020-10-04 13:34] LABS: HEMATOCRIT 26.8 % (37.0-47.0); HEMOGLOBIN 8.7 gm/dL (12.0-15.0); MCH 28.6 pg (26.0-34.0); MCHC 32.6 g/dL (28.0-37.0); MCV 87.9 fL (80.0-100.0); RBC 3.04 mil/uL (4.20-5.00); RDW 16.6 % (10.5-14.5); WBC 17.8 thou/uL (4.0-11.0)
[2020-10-04 13:59] LABS: ALBUMIN 2.8 g/dL (3.4-5.0); CALCIUM 8.3 mg/dL (8.5-10.1); CREATININE 3.6 mg/dL (0.6-1.0); TOTAL BILIRUBIN 0.7 mg/dL (0.2-1.0); TOTAL PROTEIN 5.5 g/dL (6.4-8.2)
[2020-10-04 14:03] LABS: POTASSIUM 6.1 mmol/L (3.5-5.1)
[2020-10-04 15:16] LABS: BE(vivo) -5.9 mmol/L (-2 to +3); HCO3 21.3 mmol/L (22.0-26.0); PO2 92.1 mmHg (80.0-100.0); pH 7.239 (7.360-7.450); sO2 95.6 % (92.0-98.0)
--- NOTE | 2020-10-04 19:36 | NUR ---
ASSUMED CARE OF PT O700. UPDATED REGARDING PT STATUS 1115. DAUGHTER UPDATED REGARDING PT STATUS 1300. LABS DRAWN IN AFTERNOON. CRITICAL K+. DR. PERALES NOTIFIED. ORDERS FOR INSULIN AND AMP OF DEXTROSE RECIEVED. CRITICAL ABG. LUCINDA NOTIFIED. 2 AMPS BICARB GIVEN PER LUCINDA. SUPIN 1330 02 SAT 96% REMAINS ON DILAUDID ADN VERSED. NO NEUROLOGICAL RESPONSE. NO BM. ANURIC. TMAX 98.2/
--- NOTE | 2020-10-04 21:08 | NUR ---
Pt's is facetiming patient at the moment. RN gave update on pt. status. No questions from family
[2020-10-05] VITALS (28 sets, daily range): BP systolic 109–157; BP diastolic 47–71
--- NOTE | 2020-10-05 01:51 | NUR ---
@ 0130 pt was proned. sats 98% and not hypotensive. continue to monitor
[2020-10-05 04:52] LABS: BE(vivo) -6.5 mmol/L (-2 to +3); HCO3 23.3 mmol/L (22.0-26.0); PCO2 73.9 mmHg (35.0-45.0); PO2 227.3 mmHg (80.0-100.0); pH 7.117 (7.360-7.450); sO2 99.1 % (92.0-98.0)
[2020-10-05 05:33] LABS: HEMATOCRIT 25.9 % (37.0-47.0); HEMOGLOBIN 8.4 gm/dL (12.0-15.0); MCH 28.7 pg (26.0-34.0); MCHC 32.4 g/dL (28.0-37.0); MCV 88.7 fL (80.0-100.0); RBC 2.91 mil/uL (4.20-5.00); WBC 11.3 thou/uL (4.0-11.0)
[2020-10-05 05:36] LABS: PLATELET COUNT 227 thou/uL (150-400)
[2020-10-05 05:39] LABS: ALBUMIN 2.5 g/dL (3.4-5.0); CALCIUM 7.7 mg/dL (8.5-10.1); CREATININE 3.6 mg/dL (0.6-1.0); POTASSIUM 5.9 mmol/L (3.5-5.1); TOTAL BILIRUBIN 0.7 mg/dL (0.2-1.0); TOTAL PROTEIN 5.1 g/dL (6.4-8.2)
[2020-10-05 10:45] LABS: ABSOLUTE NEUTROPHILS 10.6 thou/uL (1.4-8.2); ANISOCYTOSIS SLIGHT; MYELOCYTES 1 %; NUCLEATED RBCS 1 /100WBC; POIKILOCYTOSIS SLIGHT
--- NOTE | 2020-10-05 13:21 | NUR ---
MICHAEL CALLED IN EARLIER THIS AM RE:WANTING TO VISIT. D/W PAMELA DE LEON. PT WAS TAKEN OUT OF ISOLATION THIS AM. OK FOR TO VISIT FOR 15 MINUTES DAILY, ONLY VISITOR. MUST SCREEN,WEAR MASK & GLOVES. WILL PASS ALONG TO PRIMARY RN WHO CAN INFORM .--VW
--- NOTE | 2020-10-05 17:22 | NUR ---
PATIENT REMAINS CRITICAL ON VENT WITH NO PROGRESS. CHANGED FROM PRONE TO SUPINE AT 1330. INCREASED TO 100% ON VENT FROM 80 BY RT TO MAINTIAN SATS >90 AFTER PLACING SUPINE. SPOKE WTIH AND UPDATED ON STATUS. INFOMRED HIM THAT IT HAS BEEN APPROVED FOR HIM TO VISIT ONCE A DAY FOR 15 MIN. PATIENT MADE 10CC OF URINE THIS SHIFT, RENAL AWARE DESPITE ADDITIONAL IV LASIX. IV INSULIN AND DEXTROSE X1 FOR HYPERKALEMIA.
[2020-10-06] VITALS (32 sets, daily range): BP systolic 97–150; BP diastolic 42–73
[2020-10-06 06:10] LABS: HEMATOCRIT 23.1 % (37.0-47.0); HEMOGLOBIN 7.7 gm/dL (12.0-15.0); MCH 29.2 pg (26.0-34.0); MCHC 33.3 g/dL (28.0-37.0); MCV 87.8 fL (80.0-100.0); RBC 2.63 mil/uL (4.20-5.00); RDW 16.4 % (10.5-14.5); WBC 9.8 thou/uL (4.0-11.0)
[2020-10-06 06:33] LABS: ALBUMIN 2.5 g/dL (3.4-5.0); CALCIUM 7.9 mg/dL (8.5-10.1); CREATININE 4.2 mg/dL (0.6-1.0); POTASSIUM 5.9 mmol/L (3.5-5.1); TOTAL BILIRUBIN 0.7 mg/dL (0.2-1.0); TOTAL PROTEIN 4.9 g/dL (6.4-8.2)
--- NOTE | 2020-10-06 15:10 | NUR ---
CM review of case and notes and shows that on 10-05 spouse Asaf Yadav at [phone] has been approved for one 15 minute visit per day as relayed to him by nursing. Patient continues on Merrem and adjusted for renal failure along with corticosteroids and diuresising. CM will continue to follow for discharge needs as medical plan of care continues.
--- NOTE | 2020-10-06 15:55 | NUR ---
PT IS NOT PROGRESSING TOWARDS DISCHARGE AT THIS TIME. PT WAS SEEN BY /// 0800 - RN SPOKE WITH MICHAEL AND PROVIDED UPDATE REGARDING CURRENT CLINICAL PICTURE, WANTED TO KNOW HOW THE PT DID OVERNIGHT, AND RN STATED THAT SHE IS CURRENTLY MAXED OUT ON THE VENTILATION MACHINE AND URINE OUTPUT IS VERY LOW. 09 - PT'S MICHAEL CALLED AGAIN INQUIRING ABOUT POTASSIUM/CREATININE LEVEL, INDICATING THAT THE DAUGHTER (NURSE PRACTIONER) WANTED T0 KNOW. RN NOT ONLY GAVE TODAY'S NUMBERS BUT PROVIDED THE TREND SINCE THE September. CREATINE/BUN/POTASSIUM LEVEL HAS BEEN OUT OF NORMAL RANGE SINCE, AND HAS BEEN ACCUMULATING (INDICATING OF INSUFFICIENT RENAL CLEARANCE), VERBALIZED UNDERSTANDING OF CURRENT CLINICAL PICTURE AND WAS TOLD THAT HE WOULD VISIT LATER IN THE DAY PER VISITATION GUIDELINE. RN ASSURED THE PT THAT HE MAY CALL FOR UPDATES AT ANY TIME, AND IS HAPPY TO PROVIDE MORE INFO AND WILL UPDATE IF STATUS CHANGED. ALSO SAID THAT SHE WILL SPEAK WITH THE TOO AT THIS TIME. RN CONTINUING TO FOLLOW. PT IS CONTINUING TO BE ON THE PRONING SCHEDULE.
[2020-10-07] VITALS (25 sets, daily range): BP systolic 102–163; BP diastolic 41–87
--- NOTE | 2020-10-07 05:30 | NUR ---
PRONED APPROXIMATELY 0100, TOLERATED WELL. PT DOES NOT HAVE ANY NEUROLOGICAL RESPONSE EXCEPT SLUGGISH PUPILARY RESPONSE AND WILL OCCASIONALLY BREATHE OVER THE VENT. REMAINS ON ALISA HUGGER WITH MAX TEMP 97.5. SPOKE WITH IN THE EVENING, WISHES TO KNOW WHAT ELSE CAN BE DONE FOR HER KIDNEYS BESIDES DILYSIS. EXPLAINED INTERVENTIONS THUS FAR.
[2020-10-07 10:44] LABS: BE(vivo) -7.1 mmol/L (-2 to +3); HCO3 21.6 mmol/L (22.0-26.0); PCO2 62.4 mmHg (35.0-45.0); PO2 217.1 mmHg (80.0-100.0); sO2 99.1 % (92.0-98.0)
[2020-10-07 10:46] LABS: pH 7.157 (7.360-7.450)
--- NOTE | 2020-10-07 12:15 | NUR ---
PT SEEN BY // PT IS NOT PROGRESSING TOWARDS DISCHARGE. MICHAEL WAS UPDATED BY MATHEMATICAL SCIENTIST. TODAY STILL RUNNING THE SAME DRIP/RATE YESTERDAY. ABG WAS DONE SHOWED PH 7.157/PO2 217/PCO2 62.4/HCO3 21.6 NOTIFIED. 2 AMPS OF BICARB ORDER RECEIVED, WILL GIVE WITH NOON MEDICATIONS. PT'S NEUROLOGIC STATUS HAS BEEN THE SAME YESTERDAY. CONTINUING TO CARRY OUT ORDERS PLACED BY MDs, LASIX IV PUSH WAS PROVIDED AND ANOTHER DOSE TO BE ADMINISTERED PER 'S ORDERS
[2020-10-07 15:34] LABS: ALBUMIN 2.3 g/dL (3.4-5.0); CALCIUM 7.5 mg/dL (8.5-10.1); CREATININE 4.4 mg/dL (0.6-1.0); PHOSPHORUS 10.6 mg/dL (2.6-4.7)
[2020-10-07 15:35] LABS: POTASSIUM 6.2 mmol/L (3.5-5.1)
[2020-10-08] VITALS (30 sets, daily range): BP systolic 113–183; BP diastolic 48–75
--- NOTE | 2020-10-08 04:44 | NUR ---
PRONED WITHOUT INCIDENT, PT TOLERATED FAIR. SR, BP STABLE. NO NEURO RESPONSE. NO URINE OUTPUT. NOT PROGRESSING TOWARD GOALS
[2020-10-08 05:32] LABS: HEMATOCRIT 23.7 % (37.0-47.0); HEMOGLOBIN 7.9 gm/dL (12.0-15.0); MCH 28.9 pg (26.0-34.0); MCHC 33.3 g/dL (28.0-37.0); RBC 2.73 mil/uL (4.20-5.00); RDW 16.6 % (10.5-14.5); WBC 11.3 thou/uL (4.0-11.0)
[2020-10-08 05:49] LABS: ALBUMIN 2.5 g/dL (3.4-5.0); CALCIUM 7.8 mg/dL (8.5-10.1); CREATININE 4.8 mg/dL (0.6-1.0); PHOSPHORUS 10.3 mg/dL (2.5-4.9)
[2020-10-08 06:17] LABS: POTASSIUM 6.2 mmol/L (3.5-5.1)
--- NOTE | 2020-10-08 10:34 | NUR ---
chart review. remains on vent, wean as able to tolerate, nutritional support. proning. dialysis. cm visited with her luis via phone call. active listen and support " cont keep doing what is being done, prayers. thank you for all her care. "/luis. no anticpated dc over the weekend. cm passed on prayers for arcenio and their family. " thank you and god bless"/luis.
--- NOTE | 2020-10-08 10:50 | NUR ---
ON THE VENT AND MODERATELY SEDATED. VITALS STABLE AND IN PRONE POSITION. ASSESSMENT DOCUMENTED. K+ HIGH AND TX PER RENAL. OLIGURIC AND MDs AWARE. NOT PROGRESSING TOWARDS POC GOALS.
--- NOTE | 2020-10-08 11:43 | NUR ---
RECEIVED CALL FROM Anneliese HANNY AND WAS UPDATED, STATED HE HAD NOT RECEIVED CALL FROM DR. MOORE, I UPDATED HIME. HEA CALLED BACK AFTER ABOUT 10 MINUTES AND STATED HE HAD TALKED WITH HIS DAUGHTER WHO IS A NURSE PRACTITONER AND WANTED TO TALK TO DR. PERALES RE: HEMODIALYSIS. I GAVE HIM DR. PERALES'S OFFICE TELEPHONE NUMBER AND ALSO SENT MESSAGE TO DR. SINGH VIA [employer] TEXT.
--- NOTE | 2020-10-08 14:22 | NUR ---
PATIENT PLACED BACK TO SUPINE POSITION AND 1255 AND IS TOLERATING WELL.
--- NOTE | 2020-10-08 16:41 | NUR ---
MR. GAMINO IN TO SEE PATIENT.
[2020-10-09] VITALS (33 sets, daily range): BP systolic 110–167; BP diastolic 50–75
[2020-10-09 05:31] LABS: ALBUMIN 2.5 g/dL (3.4-5.0); CALCIUM 7.5 mg/dL (8.5-10.1); CREATININE 4.9 mg/dL (0.6-1.0); PHOSPHORUS 10.8 mg/dL (2.5-4.9)
[2020-10-09 05:40] LABS: POTASSIUM 6.1 mmol/L (3.5-5.1)
--- NOTE | 2020-10-09 06:08 | NUR ---
PRONED AT 0100, TOLEATED WELL. INTO AFIB AT 0230 RATES UP TO 120 FOR APPROXIMATELY 1 HOUR, IV METOPROLOL GIVEN, PT CONVERTED TO SR AROUND 0330. SEDATION WEANED IN EFFORT TO CORRECTLY TV HOST NEURO STATUS. AT THIS TIME PT IS NOT OVERBREATHING VENT, HAS NO COUGH/GAG/CORNEAL REFLEX. VERY LITTLE URINE OUTPUT.
--- NOTE | 2020-10-09 08:34 | NUR ---
Assumed care at 0700, assessment and vital signs completed per ICU protocol. Dr. Finn rounded this am, made aware of hyperkalemia and lab values. Plan of care discussed, RN will continue to monitor.
[2020-10-10] VITALS (32 sets, daily range): BP systolic 100–171; BP diastolic 40–70
[2020-10-10 04:42] LABS: ALBUMIN 2.2 g/dL (3.4-5.0); CALCIUM 6.8 mg/dL (8.5-10.1); CREATININE 5.2 mg/dL (0.6-1.0); PHOSPHORUS 10.2 mg/dL (2.5-4.9)
[2020-10-10 05:08] LABS: POTASSIUM 5.6 mmol/L (3.5-5.1)
--- NOTE | 2020-10-10 08:15 | NUR ---
Assumed care at 0700, assessment and vital signs completed per ICU protocol. Pt proned upon arrival, RN will continue o monitor.
[2020-10-11] VITALS (30 sets, daily range): BP systolic 125–157; BP diastolic 50–84
[2020-10-11 04:09] LABS: HCO3 17.9 mmol/L (22.0-26.0); PO2 130.2 mmHg (80.0-100.0); pH 7.291 (7.360-7.450); sO2 98.3 % (92.0-98.0)
[2020-10-11 05:05] LABS: ALBUMIN 2.2 g/dL (3.4-5.0); CALCIUM 6.6 mg/dL (8.5-10.1); CREATININE 5.5 mg/dL (0.6-1.0); PHOSPHORUS 10.7 mg/dL (2.5-4.9); POTASSIUM 4.9 mmol/L (3.5-5.1); TOTAL BILIRUBIN 0.8 mg/dL (0.2-1.0); TOTAL PROTEIN 4.9 g/dL (6.4-8.2)
[2020-10-11 05:09] LABS: ABSOLUTE NEUTROPHILS 15.3 thou/uL (1.4-8.2); EOSINOPHILS 0.2 % (0.0-3.0); HEMATOCRIT 23.7 % (37.0-47.0); HEMOGLOBIN 7.8 gm/dL (12.0-15.0); LYMPHOCYTES 1.3 % (24.0-44.0); MCH 28.8 pg (26.0-34.0); MCV 87.2 fL (80.0-100.0); MONOCYTES 1.8 % (1.0-8.0); PLATELET COUNT 255 thou/uL (150-400); POLYS 96.7 % (36.0-66.0); RBC 2.72 mil/uL (4.20-5.00); RDW 16.5 % (10.5-14.5); WBC 15.8 thou/uL (4.0-11.0)
--- NOTE | 2020-10-11 05:34 | NUR ---
Patient proned at 0100 this morning. Tolerating well. Will continue to monitor.
--- NOTE | 2020-10-11 05:35 | NUR ---
Jose ABG called to Dr. Garcia this morning at 0430. No new orders received.
--- NOTE | 2020-10-11 06:43 | NUR ---
Patient failing to progress towards goals. Remains on lasix gtt. Low temperatures throughout the night.
--- NOTE | 2020-10-11 11:32 | NUR ---
ASSUMED CARE AT 0700. SPOKE WITH PATIENT'S SON OVER THE PHONE FROM [id number] ABOUT VISITATION POLICY.
--- NOTE | 2020-10-11 14:12 | NUR ---
chart review. pt remain on vent, wean as tolerated, and nutritional support. noted bedside nurse spoke with luis. will cont following as needed for dc needs.
[2020-10-12] VITALS (29 sets, daily range): BP systolic 110–156; BP diastolic 52–93
[2020-10-12 05:57] LABS: HEMATOCRIT 21.9 % (37.0-47.0); HEMOGLOBIN 7.3 gm/dL (12.0-15.0); MCH 28.7 pg (26.0-34.0); MCHC 33.4 g/dL (28.0-37.0); RBC 2.55 mil/uL (4.20-5.00); RDW 16.3 % (10.5-14.5); WBC 15.8 thou/uL (4.0-11.0)
[2020-10-12 06:28] LABS: ALBUMIN 2.1 g/dL (3.4-5.0); CALCIUM 6.7 mg/dL (8.5-10.1); CREATININE 5.4 mg/dL (0.6-1.0); PHOSPHORUS 11.1 mg/dL (2.6-4.7); POTASSIUM 4.6 mmol/L (3.5-5.1)
--- NOTE | 2020-10-12 11:10 | NUR ---
Assumed care at 0700, assessment and vital signs completed per ICU protocol. Dr. Camejo and Dr. Garcia rounded this am, plan of care discussed. RN will continue to monitor.
[2020-10-13] VITALS (45 sets, daily range): BP systolic 85–169; BP diastolic 32–97
[2020-10-13 05:47] LABS: HEMATOCRIT 23.7 % (37.0-47.0); MCHC 33.5 g/dL (28.0-37.0); MCV 86.5 fL (80.0-100.0); RBC 2.74 mil/uL (4.20-5.00); RDW 16.5 % (10.5-14.5); WBC 21.5 thou/uL (4.0-11.0)
[2020-10-13 06:17] LABS: CALCIUM 7.2 mg/dL (8.5-10.1); CREATININE 5.8 mg/dL (0.6-1.0); POTASSIUM 4.2 mmol/L (3.5-5.1)
--- NOTE | 2020-10-13 06:24 | NUR ---
ASSUMED CARE AT 1900. PT'S CALLED AT 2039 AND WANTED TO FACETIME WITH PT; SET UP IPAD IN ROOM AND CALLED HIM. AT 0015-RT DECREASED PEAK INSPIRATION PRESSURE TO 40, AND SATS CONTINUED IN THE MID 90'S. PT PRONED AT 0100, TOLERATED WELL, SATS IN UPPER 90'S, AND ONLY A BRIEF RISE IN BP/PULSE. PLACED A RECTAL TEMP PROBE ORAL/AXI TEMPS WERE'T ACCURATE; TEMPS WERE AROUND 92 DEG AND PLACED BAREHUGER ON PT AND RAISED TEMP IN ROOM. THIS AM, OG RESIDUAL WAS 200 ML, REPLACED HALF AND DISCARDED HALF. HAD A MEDIUM RUNNY STOOL OVERNIGHT. NO OTHER CONCERNS, NOT PROGRESSING TOWARDS GOALS.
--- NOTE | 2020-10-13 09:53 | NUR ---
0911 SPOKE WITH PATIENT'S MICHAEL. UPDATE GIVEN AND ALL QUESTIONS ANSWERED.
--- NOTE | 2020-10-13 22:00 | NUR ---
pt face timed with her approx 20 minutes
[2020-10-14] VITALS (102 sets, daily range): BP systolic 93–155; BP diastolic 38–70
--- NOTE | 2020-10-14 06:00 | NUR ---
cont to prone. staqrted at 0100. REMAINS INTUBATED. NO SEDATION REQUIRED NO COUGH NOR Gag. will cont to monitor
[2020-10-14 06:08] LABS: HEMATOCRIT 23.6 % (37.0-47.0); HEMOGLOBIN 7.8 gm/dL (12.0-15.0); MCH 28.7 pg (26.0-34.0); MCHC 32.9 g/dL (28.0-37.0); MCV 87.3 fL (80.0-100.0); RBC 2.7 mil/uL (4.20-5.00); RDW 16.7 % (10.5-14.5); WBC 21.5 thou/uL (4.0-11.0)
[2020-10-14 06:18] LABS: CALCIUM 6.9 mg/dL (8.5-10.1); CREATININE 5.9 mg/dL (0.6-1.0); POTASSIUM 4.5 mmol/L (3.5-5.1)
--- NOTE | 2020-10-14 12:20 | NUR ---
chart review. remains on vent, nutritional support. arlene. cm spoke with spouse luis, he did not have any question. " still praying, keep fighting, still want to see her get better and out of there. wish her kidney would get better. someone is supposed to be calling by . i have talked with nurses. thank you all for her care"/ luis. will cont following as needed for dc needs. no anticipated dc over the weekend.
--- NOTE | 2020-10-14 17:35 | NUR ---
PATIENT REMAINS UNRESPONSIVE ON THE VENT. NO SEDATION OR PARALYTICS. PATIENT CURRENTLY HAS NO GAG, COUGH, AND PUPILS ARE MINIMALY RESPONSIVE. SPOKE WITH THIS AM AND GAVE UPDATE AND THEN HE CAME INTO SEE PATIENT AND WE SPOKE AGAIN. DR NEWTON AND DR ALMAZAN STATED THEY WERE ALSO GOING TO CALL THE FAMILY. PATIENT CONTINUES TO HAVE 0 URINE OUTPUT. MORIN BAG FLUSHED TO CHECK FOR CLOTS AND BLADDER WAS SCANNED WITH 0 RESIDUAL; IN THE BLADDER. PHYSICIANS ARE AWARE. NO OTHER CONCERNS AT THIS TIME. WILL CONTINUE TO MONITOR AND CARE PER PLAN OF CARE.
--- NOTE | 2020-10-14 21:00 | NUR ---
pt face timed with her and son approx 15 minutes
[2020-10-15] VITALS (40 sets, daily range): BP systolic 94–151; BP diastolic 40–66
[2020-10-15 05:45] LABS: RBC 2.42 mil/uL (4.20-5.00); RDW 16.1 % (10.5-14.5); WBC 13.3 thou/uL (4.0-11.0)
[2020-10-15 05:46] LABS: HEMATOCRIT 20.7 % (37.0-47.0); MCH 28.8 pg (26.0-34.0); MCHC 33.7 g/dL (28.0-37.0); MCV 85.6 fL (80.0-100.0)
[2020-10-15 05:56] LABS: CALCIUM 6.6 mg/dL (8.5-10.1); CREATININE 6.2 mg/dL (0.6-1.0); POTASSIUM 4.3 mmol/L (3.5-5.1)
--- NOTE | 2020-10-15 06:00 | NUR ---
REMAINS INTUBATED NONRESPONSIVE. NO COUGH GAG NOR BLINK REFLEX. 3 CC UO THIS SHIFT. AFIB TO SINUS RHYTHM PER MONITOR. REMAINS A DNR. PTS FEELS\ THAT GOD WILL GENET A MIRACLE AND SHE WILL WALK OUT OF THE ICU. NOT PROGRESSING TOWARD GOALS. WILL CONT TO MONITOR.
--- NOTE | 2020-10-15 09:00 | NUR ---
ASSUMMED CARE FROM THE NIGHT NURSE MARY ELLEN MCKEON. LEVOPHED TAPPERED MAP IS IN THE 70'S. WILL CONTINUE TO MONITOR
--- NOTE | 2020-10-15 11:20 | NUR ---
PATIENT , MICHAEL CALLED IN AND UPDATED ON HIS 'S STATUS.
--- NOTE | 2020-10-15 12:30 | NUR ---
LEVOPHED WEANED OFF. STATUS UNCHANGED.
--- NOTE | 2020-10-15 17:37 | NUR ---
PATIENT IS NOT PROGESSING TOWARDS OUTCOME GOALS. FLUIDS INFUSIN. AT BEDSIDE EARLIER. HE STATED THAT HER ESTRANGED DAUGHTER WILL BE HERE SUNDAY FROM [place]. STATUS UNCHANGED.
[2020-10-16] VITALS (25 sets, daily range): BP systolic 95–132; BP diastolic 36–69
[2020-10-16 05:35] LABS: MCV 86.4 fL (80.0-100.0); RDW 16.2 % (10.5-14.5)
[2020-10-16 05:37] LABS: MCH 29.6 pg (26.0-34.0); MCHC 34.2 g/dL (28.0-37.0); RBC 1.89 mil/uL (4.20-5.00); WBC 8.2 thou/uL (4.0-11.0)
[2020-10-16 05:45] LABS: HEMATOCRIT 16.3 % (37.0-47.0); HEMOGLOBIN 5.6 gm/dL (12.0-15.0)
[2020-10-16 05:45] LABS: BE(vivo) -9.3 mmol/L (-2 to +3); HCO3 16.6 mmol/L (22.0-26.0); PO2 83.3 mmHg (80.0-100.0); sO2 95.1 % (92.0-98.0)
[2020-10-16 05:47] LABS: pH 7.281 (7.360-7.450)
[2020-10-16 05:56] LABS: ALBUMIN 2.9 g/dL (3.4-5.0); CALCIUM 6.1 mg/dL (8.5-10.1); CREATININE 6.3 mg/dL (0.6-1.0); MAGNESIUM 2.5 mg/dL (1.8-2.4); POTASSIUM 4.2 mmol/L (3.5-5.1); TOTAL BILIRUBIN 0.9 mg/dL (0.2-1.0); TOTAL PROTEIN 4.9 g/dL (6.4-8.2)
--- NOTE | 2020-10-16 06:11 | NUR ---
SIGNIFICANTLY CHANGED AM LABS TODAY COMPARED TO YESTERDAY. CONCERN FOR DILUTED SAMPLE. REDRAW SENT TO LAB.
[2020-10-16 06:17] LABS: MCH 29.2 pg (26.0-34.0); MCV 86.1 fL (80.0-100.0); RBC 1.97 mil/uL (4.20-5.00); RDW 16.2 % (10.5-14.5); WBC 9.3 thou/uL (4.0-11.0)
[2020-10-16 06:19] LABS: HEMOGLOBIN 5.8 gm/dL (12.0-15.0)
[2020-10-16 06:32] LABS: CALCIUM 6.2 mg/dL (8.5-10.1); CREATININE 6.5 mg/dL (0.6-1.0); MAGNESIUM 2.6 mg/dL (1.8-2.4); POTASSIUM 4.2 mmol/L (3.5-5.1); TOTAL BILIRUBIN 0.9 mg/dL (0.2-1.0); TOTAL PROTEIN 5.2 g/dL (6.4-8.2)
--- NOTE | 2020-10-16 18:25 | NUR ---
PT INTUBATED, NO SEDATION. PT GCS-3, MTN HAS BEEN NOTIFIED. PT HYPOTHERMIC, BEAR HUGGER IN PLACE, OLIGURIC, NO NUTRITION, NO BM. OGT TO LIS WITH 275 OUTPUT. 1 UNIT OF PRBC GIVEN PER [facility] PROTOCAL. AT BEDSIDE FOR 15 MINUTES TODAY, DURING THAT TIME HE WAS UPDATED AND EDUCATED ON PT CONDITION AND POC, ALSO A SECOND TIME OVER THE PHONE. PT ALSO UPDATED AND EDUCATED. PT NOT PROGRESSING TOWARDS POC.
[2020-10-17] VITALS (42 sets, daily range): BP systolic 70–127; BP diastolic 26–59
[2020-10-17 10:31] LABS: ALBUMIN 3.9 g/dL (3.4-5.0); CREATININE 6.7 mg/dL (0.6-1.0); PHOSPHORUS 11.7 mg/dL (2.6-4.7); POTASSIUM 4.4 mmol/L (3.5-5.1)
--- NOTE | 2020-10-17 15:13 | NUR ---
PT INTUBATED, NO SEDATION. PT GCS-3, MTN HAS BEEN NOTIFIED. PT AFEBRILE, ANEURIC, NO BM, +4 ANSARCA, NO NUTRITION ORDERED. OGT TO LIS WITH SIGNIFICANT DRAINAGE. PT AND FAMILY HAVE BEEN UPDATED AND EDUCATED ON PT CONDITION AND POC. PT NOT PROGRESSING TOWARDS POC. AT BEDSIDE FOR 15 MINUTES TODAY.
--- NOTE | 2020-10-17 22:00 | NUR ---
FACE TIME WITH PT FRO APPROX 20 MINUTES
[2020-10-18] VITALS (66 sets, daily range): BP systolic 87–132; BP diastolic 31–58
[2020-10-18 06:12] LABS: ALBUMIN 4.2 g/dL (3.4-5.0); CREATININE 7.2 mg/dL (0.6-1.0); PHOSPHORUS 11.5 mg/dL (2.5-4.9); POTASSIUM 4.3 mmol/L (3.5-5.1)
--- NOTE | 2020-10-18 06:30 | NUR ---
REMAINS INTUBATED. NONRESPONSIVE. NO COUGH GAG NOR CORNEAL REFLEX. REMAIN A DNR. LUNGS COARSE IN UPPER LOBES. 5 CC UO THIS SHIFT HAS BEEN IN AFIB MOST OF NIGHT. LEVOP GTT AT 1 MCG. NOT PROGRESSING TOWARD GOALS.
--- NOTE | 2020-10-18 08:37 | NUR ---
ASSUMMED CARE OF THIS PATIENT FROM MARY ELLEN [facility] NIGHT NURSE AT 0700.
--- NOTE | 2020-10-18 11:20 | NUR ---
SPOKE WITH PATIENT'S CONCERNING PATIENT'S DAUGHTER DROVE IN FROM OUT OF STATE TO SEE HER MOTHER. SPOKE WITH DIGITAL SALES REPRESENTATIVE AND WILL FOLLOW UP.
--- NOTE | 2020-10-18 11:39 | NUR ---
chart review, she cont to require vent support and nutritional support. not on sedation. spouse luis has been able to face time with her and getting updates from bedside nurse and physician. noted that pt has daughter that lives out of town and possible will be coming home. will cont following as needed for dc needs.
--- NOTE | 2020-10-18 14:12 | NUR ---
1345 SPOKE WITH PATIENT'S AND INFORMED HIM THAT THE DAUGHTER COULD VISIT FOR 15 MINS, INSTRUCTED THAT SHE MUST BRING HER ID AND MASK AND WOULD BE ALLOWED 15 MINS. CHART UPDATED AFTER DAUGHTER'S NAME OBTAINED.
--- NOTE | 2020-10-18 19:26 | NUR ---
PATIENT IS NOT PROGRESSING TOWARDS OUTCOME GOALS. NO URINE OUTPUT. REMAINS NON RESPONSIVE. DAUGHTER, JAMES IN TO VISIT FOR 15 MINS AT 1645. PATIENT'S HEART RATE IN THE 110'S WHEN DAUGHTER IN THE ROOM AND NOW SHOWING NSR IN THE 80'S. REMAINS ON FIO2 OF 100%.
[2020-10-19] VITALS (75 sets, daily range): BP systolic 76–127; BP diastolic 29–64
[2020-10-19 05:37] LABS: ALBUMIN 4.5 g/dL (3.4-5.0); CREATININE 7.5 mg/dL (0.6-1.0); PHOSPHORUS 11.9 mg/dL (2.5-4.9); POTASSIUM 4.6 mmol/L (3.5-5.1)
--- NOTE | 2020-10-19 06:00 | NUR ---
PT FACE TIMED WITH HER EARLIER THIS EVENING. REMAINS INTUBATED AND NONRESPOMNSIVE. NO COUGH GAG NOR COrneal reflex. 3 CC UO THIS SHIFT. EXTREMELY EDEMATOUS 4 + PITTING. LEVOPHED GTT AT 3 MCG FOR BP SUPPORT NOT PROGRESSING TOWARD GOALS
--- NOTE | 2020-10-19 09:49 | NUR ---
Assumed care at 0700, assessment and vital signs completed per ICU protocol. Dr. Finn rounded this am, plan of care discussed. RN will continue to monitor.
[2020-10-20] VITALS (120 sets, daily range): BP systolic 76–142; BP diastolic 12–69
--- NOTE | 2020-10-20 15:21 | NUR ---
ASSUMED CARE AT 0700. CALLED QUICK SKETCH ARTIST REGARDING LOW DIASTOLIC BP'S AND MAP. WAS TOLD TO CONTINUE TO MONITOR AND NEW ORDERS WERE GIVEN.
--- NOTE | 2020-10-20 21:28 | NUR ---
DAUGHTER FACETIMED WITH PATIENT FACETIMED WITH PATIENT AT 2124 AND CONTINUES AT TIME OF THIS NOTE.
[2020-10-21] VITALS (16 sets, daily range): BP systolic 56–106; BP diastolic 11–25
--- NOTE | 2020-10-21 03:09 | NUR ---
WORSENING HYPOTENSION 63/22, MAXED ON LEVOPHED GTT. DR. NEWTON NOTIFIED AT 0250. NO NEW ORDER RECEIVED, CONTINUE PLAN OF CARE. CALLED VIA [employer] 0257.
--- NOTE | 2020-10-21 07:18 | NUR ---
TOD 10/21/20 AT 0642 CALLED BY THIS RN AND DULCE NEAL, CONFIRMED BY DR. BRITTNEE GONZALEZ. PATIENT BECAME BRADYCARDIC AND REMAINED HYPOTENSIVE ON LEVOPHED DRIP. THIS RN AT BEDSIDE TO FACETIME PATIENT'S . PATIENT WENT ASYTOLE, AND NOTIFIED. DR. BRITTNEE GONZALEZ TO BEDSIDE FOR PRONOUNCEMENT. RT TO BEDSIDE TO REMOVE ETT AT 0710.
--- NOTE | 2020-10-21 09:53 | NUR ---
LATE NOTE: THIS MERCHANDISE COORDINATOR UNDERSTOOD FROM SECURITY STAFF THAT THE PT. HAD PASSED. I UNDERSTOOD FAMILY HAD ARRIVED TO VIEW THE . THIS CHAPAIN ATTEMPTED TO VISIT THE FAMILY IN ICU AROUND 0830, BUT THEY HAD AREADY LEFT. THIS MERCHANDISE COORDINATOR THEN PROVIDED STAFF SUPPORT AND DEBRIEFING.
== END 2020-10-21 06:42 | DRG 870 ==
LOC: ER 09:20 → EROBS 11:07 → 3W 11:07 → ICU 09-11 16:06
PROVIDERS: Emergency Medicine; Hospitalist; Internal Medicine; Internal Medicine Nephrology; Internal Medicine Pulmonary Disease; Nurse Practitioner Family; Pediatrics; Physician Assistant; Specialist; ADMIT Internal Medicine; ATTEND Internal Medicine
DX: A41.89 Other specified sepsis (principal); U07.1 COVID-19; G92 Toxic encephalopathy; J12.82 Pneumonia due to coronavirus disease 2019; J80 Acute respiratory distress syndrome; N17.0 Acute kidney failure with tubular necrosis; K56.7 Ileus, unspecified; D83.9 Common variable immunodeficiency, unspecified; E44.0 Moderate protein-calorie malnutrition; E87.1 Hypo-osmolality and hyponatremia; Z68.43 Body mass index [BMI] 50.0-59.9, adult; J45.909 Unspecified asthma, uncomplicated; E11.65 Type 2 diabetes mellitus with hyperglycemia; G47.00 Insomnia, unspecified; D64.9 Anemia, unspecified; E66.01 Morbid (severe) obesity due to excess calories; R31.0 Gross hematuria; T68.XXXA Hypothermia, initial encounter; Z66 Do not resuscitate; E83.51 Hypocalcemia; R65.20 Severe sepsis without septic shock; E87.5 Hyperkalemia; I48.0 Paroxysmal atrial fibrillation; E83.39 Other disorders of phosphorus metabolism; Z51.5 Encounter for palliative care; Z90.710 Acquired absence of both cervix and uterus; Z86.711 Personal history of pulmonary embolism; Z98.42 Cataract extraction status, left eye; Z88.1 Allergy status to other antibiotic agents; Z88.2 Allergy status to sulfonamides; Z88.8 Allergy status to other drugs, medicaments and biological substances; Z71.3 Dietary counseling and surveillance; Z90.5 Acquired absence of kidney
CPT/HCPCS: 10078; 10203; 10879; 27000; 85076